=== PATIENT | male | born 1955 | race Caucasian/White ===

== ENCOUNTER 2017-09-11 11:15 | Emergency (ER) | payer OTHER ==
[~2017-09-11] VITALS: Ht 172.7 cm; Wt 73.9 kg
[~2017-09-11 11:15] MED LIST: ALBU90OI61 INH; Alph-E-Mixed400 UNIT; Aspirin EC81 MG; CALCIUM-MAGNES1 EAC1 PO; CARI350 PO; CHLO10 PO; CHLO25 PO; CYCL10 PO; Daily Multiple1 EACH PO; ESCI10 PO; FISH1000 PO; GLIP5; GLIP5 PO; HYDACE10B PO; HYDACE5325 PO; HYDHCL25 PO; INSULIN SC; LORA.5 PO; LORA2 PO; MEDICAL MARIJUANA; MELO7.5 PO; METF500 PO; Naprosyn500 MG PO; Norco 5-325 Ta1 EACH PO; Norco 7.5-3251 EACH PO; Roxicodone5 MG PO; Saw Palmetto160 MG; TRAZ50 PO; [UNRECOGNIZED DRUG - REMARK]
[2017-09-11 12:12] LABS: BASOPHILS ABSOLUTE AUTO 0.02 K/mm3 (0.00-0.23); BASOPHILS PERCENT AUTO 1 % (0-2); EOSINOPHILS ABSOLUTE AUTO 0.13 K/mm3 (0.00-0.68); EOSINOPHILS PERCENT AUTO 4 % (0-6); Hematocrit 39.5 % (37.0-53.0); Hemoglobin 13.5 g/dL (13.5-17.5); IMMATURE GRAN ABSOLUTE AUTO 0.02 K/mm3 (0.00-0.10); IMMATURE GRAN PERCENT AUTO 1 % (0-1); LYMPHOCYTES ABSOLUTE AUTO 1.58 K/mm3 (0.84-5.20); LYMPHOCYTES PERCENT AUTO 45 % (21-46); MONOCYTES ABSOLUTE AUTO 0.29 K/mm3 (0.16-1.47); MONOCYTES PERCENT AUTO 8 % (4-13); Mean Corpuscular HGB 29.6 pg (26.0-34.0); Mean Corpuscular HGB Conc 34.2 g/dL (31.5-36.5); Mean Corpuscular Volume 87 fL (80-100); Mean Platelet Volume 9.6 fL (9.1-12.4); NEUTROPHILS ABSOLUTE AUTO 1.44 K/mm3 (1.96-9.15); NEUTROPHILS PERCENT AUTO 41 % (41-73); Platelet Count 152 K/mm3 (150-400); RDW Coefficient Variation 12.3 % (11.7-14.2); RDW Standard Deviation 38.9 fL (35.1-46.3); Red Blood Cell Count 4.56 M/mm3 (4.30-5.90); White Blood Cell Count 3.48 K/mm3 (4.00-11.30)
[2017-09-11 12:25] LABS: Alanine Aminotransfer (ALT/SGP 153 U/L (12-78); Albumin, Blood 3.8 g/dL (3.4-5.0); Alk Phos 64 U/L (50-136); Anion Gap 10 mmol/L (6-16); Aspartate Aminotrans (AST/SGOT 89 U/L (12-37); Bilirubin, Total 0.5 mg/dL (0.1-1.0); Blood Urea Nitrogen 11 mg/dL (8-24); Bun/Creatinine Ratio 14.8 (12.0-20.0); CO2, Blood 24 mmol/L (21-32); Calcium, Blood 8.9 mg/dL (8.5-10.1); Chloride, Blood 105 mmol/L (98-108); Creatinine, Blood 0.74 mg/dL (0.60-1.20); Globulin, Blood 3.9 g/dL (2.2-4.0); Glomerular Filtration Rate >60 (60-); Glucose, Blood 184 mg/dL (70-99); Sodium, Blood 139 mmol/L (136-145); Total Protein, Blood 7.7 g/dL (6.4-8.2)
[2017-09-11] MEDS ORDERED: Norco 5-325 Ta1 EACH PO (12:32)
== END 2017-09-11 12:40 | disposition home or self-care (01) ==
LOC: ER 11:15
PROVIDERS: Psychiatry & Neurology Psychiatry
DX: M79.641 Pain in right hand (principal); M79.642 Pain in left hand; Z79.899 Other long term (current) drug therapy; Z79.84 Long term (current) use of oral hypoglycemic drugs; Z79.4 Long term (current) use of insulin; I48.91 Unspecified atrial fibrillation; E11.9 Type 2 diabetes mellitus without complications; I10 Essential (primary) hypertension; Z87.891 Personal history of nicotine dependence
CPT/HCPCS: 36415; 73130; 80053; 85025; 99283

== ENCOUNTER 2017-09-13 07:36 | Emergency (ER) | payer OTHER ==
[~2017-09-13] VITALS: Ht 172.7 cm; Wt 74.8 kg
[2017-09-13 08:34] LABS: BASOPHILS ABSOLUTE AUTO 0.02 K/mm3 (0.00-0.23); BASOPHILS PERCENT AUTO 0 % (0-2); EOSINOPHILS ABSOLUTE AUTO 0.15 K/mm3 (0.00-0.68); EOSINOPHILS PERCENT AUTO 3 % (0-6); Hematocrit 40.6 % (37.0-53.0); Hemoglobin 13.7 g/dL (13.5-17.5); IMMATURE GRAN ABSOLUTE AUTO 0.04 K/mm3 (0.00-0.10); IMMATURE GRAN PERCENT AUTO 1 % (0-1); LYMPHOCYTES ABSOLUTE AUTO 1.92 K/mm3 (0.84-5.20); LYMPHOCYTES PERCENT AUTO 38 % (21-46); MONOCYTES PERCENT AUTO 8 % (4-13); Mean Corpuscular HGB 29.6 pg (26.0-34.0); Mean Corpuscular HGB Conc 33.7 g/dL (31.5-36.5); Mean Corpuscular Volume 88 fL (80-100); NEUTROPHILS ABSOLUTE AUTO 2.53 K/mm3 (1.96-9.15); NEUTROPHILS PERCENT AUTO 50 % (41-73); RDW Coefficient Variation 12.3 % (11.7-14.2); RDW Standard Deviation 39.7 fL (35.1-46.3); Red Blood Cell Count 4.63 M/mm3 (4.30-5.90); White Blood Cell Count 5.06 K/mm3 (4.00-11.30)
[2017-09-13 08:39] LABS: Mean Platelet Volume 9.7 fL (9.1-12.4); Platelet Count 150 K/mm3 (150-400)
[2017-09-13 08:44] LABS: Anion Gap 8 mmol/L (6-16); Blood Urea Nitrogen 15 mg/dL (8-24); CO2, Blood 25 mmol/L (21-32); Calcium, Blood 8.7 mg/dL (8.5-10.1); Chloride, Blood 105 mmol/L (98-108); Creatinine, Blood 0.63 mg/dL (0.60-1.20); Glomerular Filtration Rate >60 (60-); Glucose, Blood 199 mg/dL (70-99); Potassium, Blood 4.1 mmol/L (3.5-5.5); Sodium, Blood 138 mmol/L (136-145)
== END 2017-09-13 09:20 | disposition home or self-care (01) ==
LOC: ER 07:36
PROVIDERS: Emergency Medicine
DX: G89.18 Other acute postprocedural pain (principal); M79.641 Pain in right hand; M79.89 Other specified soft tissue disorders; Z79.899 Other long term (current) drug therapy; Z79.84 Long term (current) use of oral hypoglycemic drugs; Z79.4 Long term (current) use of insulin; I48.91 Unspecified atrial fibrillation; E11.9 Type 2 diabetes mellitus without complications; I10 Essential (primary) hypertension; Z87.891 Personal history of nicotine dependence; F10.20 Alcohol dependence, uncomplicated
CPT/HCPCS: 36415; 73120; 80048; 85025; 96374; 96375; 99283; J0690; J1170; J1885; J2405; J7030

== ENCOUNTER 2017-09-13 15:23 | Emergency (ER) | payer OTHER ==
[~2017-09-13] VITALS: Ht 172.7 cm; Wt 74.8 kg
[2017-09-13 17:34] LABS: BASOPHILS ABSOLUTE AUTO 0.01 K/mm3 (0.00-0.23); BASOPHILS PERCENT AUTO 0 % (0-2); EOSINOPHILS ABSOLUTE AUTO 0.13 K/mm3 (0.00-0.68); EOSINOPHILS PERCENT AUTO 2 % (0-6); Hematocrit 36.1 % (37.0-53.0); Hemoglobin 12.2 g/dL (13.5-17.5); IMMATURE GRAN ABSOLUTE AUTO 0.02 K/mm3 (0.00-0.10); IMMATURE GRAN PERCENT AUTO 0 % (0-1); LYMPHOCYTES ABSOLUTE AUTO 1.23 K/mm3 (0.84-5.20); LYMPHOCYTES PERCENT AUTO 20 % (21-46); MONOCYTES ABSOLUTE AUTO 0.55 K/mm3 (0.16-1.47); MONOCYTES PERCENT AUTO 9 % (4-13); Mean Corpuscular HGB 30.3 pg (26.0-34.0); Mean Corpuscular HGB Conc 33.8 g/dL (31.5-36.5); Mean Corpuscular Volume 90 fL (80-100); Mean Platelet Volume 9.5 fL (9.1-12.4); NEUTROPHILS ABSOLUTE AUTO 4.19 K/mm3 (1.96-9.15); NEUTROPHILS PERCENT AUTO 68 % (41-73); Platelet Count 128 K/mm3 (150-400); RDW Coefficient Variation 12.2 % (11.7-14.2); RDW Standard Deviation 39.8 fL (35.1-46.3); Red Blood Cell Count 4.03 M/mm3 (4.30-5.90); White Blood Cell Count 6.13 K/mm3 (4.00-11.30)
[2017-09-13 18:00] LABS: Alanine Aminotransfer (ALT/SGP 115 U/L (12-78); Albumin, Blood 3.4 g/dL (3.4-5.0); Albumin/Globulin Ratio 0.9 (0.8-1.8); Alk Phos 55 U/L (50-136); Anion Gap 8 mmol/L (6-16); Aspartate Aminotrans (AST/SGOT 62 U/L (12-37); Bilirubin, Total 0.5 mg/dL (0.1-1.0); Blood Urea Nitrogen 11 mg/dL (8-24); Bun/Creatinine Ratio 17.2 (12.0-20.0); CO2, Blood 24 mmol/L (21-32); Calcium, Blood 8.3 mg/dL (8.5-10.1); Chloride, Blood 102 mmol/L (98-108); Creatinine, Blood 0.64 mg/dL (0.60-1.20); Globulin, Blood 3.6 g/dL (2.2-4.0); Glomerular Filtration Rate >60 (60-); Glucose, Blood 104 mg/dL (70-99); Potassium, Blood 4.2 mmol/L (3.5-5.5); Sodium, Blood 134 mmol/L (136-145)
== END 2017-09-13 18:48 | disposition short-term general hospital (02) ==
LOC: ER 15:23
PROVIDERS: Emergency Medicine
DX: T84.59XA Infection and inflammatory reaction due to other internal joint prosthesis, initial encounter (principal); I89.1 Lymphangitis; E11.9 Type 2 diabetes mellitus without complications; I48.91 Unspecified atrial fibrillation; I10 Essential (primary) hypertension; Z79.84 Long term (current) use of oral hypoglycemic drugs; Z87.891 Personal history of nicotine dependence; Z96.691 Finger-joint replacement of right hand
CPT/HCPCS: 36415; 73120; 80048; 80053; 83605; 85025; 87040; 96365; 96374; 96375; 99283; 99285; J0690; J1170; J1885; J2405; J3370; J7030; J7050

== ENCOUNTER 2017-09-22 00:35 | Day surgery (SDC) | payer OTHER ==
[2017-09-22 11:00] LABS: BASOPHILS ABSOLUTE AUTO 0.03 K/mm3 (0.00-0.23); BASOPHILS PERCENT AUTO 1 % (0-2); EOSINOPHILS ABSOLUTE AUTO 0.26 K/mm3 (0.00-0.68); EOSINOPHILS PERCENT AUTO 5 % (0-6); Hematocrit 40.1 % (37.0-53.0); Hemoglobin 13.7 g/dL (13.5-17.5); IMMATURE GRAN PERCENT AUTO 2 % (0-1); LYMPHOCYTES ABSOLUTE AUTO 2.56 K/mm3 (0.84-5.20); LYMPHOCYTES PERCENT AUTO 48 % (21-46); MONOCYTES ABSOLUTE AUTO 0.48 K/mm3 (0.16-1.47); MONOCYTES PERCENT AUTO 9 % (4-13); Mean Corpuscular HGB 29.3 pg (26.0-34.0); Mean Corpuscular HGB Conc 34.2 g/dL (31.5-36.5); Mean Platelet Volume 9.4 fL (9.1-12.4); NEUTROPHILS ABSOLUTE AUTO 1.96 K/mm3 (1.96-9.15); NEUTROPHILS PERCENT AUTO 36 % (41-73); Platelet Count 251 K/mm3 (150-400); RDW Coefficient Variation 11.9 % (11.7-14.2); RDW Standard Deviation 37.3 fL (35.1-46.3); Red Blood Cell Count 4.67 M/mm3 (4.30-5.90); White Blood Cell Count 5.39 K/mm3 (4.00-11.30)
[2017-09-22 11:01] LABS: Mean Corpuscular Volume 86 fL (80-100)
[2017-09-22 11:22] LABS: C-REACTIVE PROTEIN, EXT RANGE 0.354 mg/dL (0.000-0.300)
[2017-09-22 11:46] LABS: Alanine Aminotransfer (ALT/SGP 79 U/L (12-78); Albumin, Blood 3.5 g/dL (3.4-5.0); Albumin/Globulin Ratio 0.7 (0.8-1.8); Alk Phos 76 U/L (50-136); Aspartate Aminotrans (AST/SGOT 52 U/L (12-37); Bilirubin, Total 0.5 mg/dL (0.1-1.0); Blood Urea Nitrogen 16 mg/dL (8-24); Bun/Creatinine Ratio 22.9 (12.0-20.0); CO2, Blood 26 mmol/L (21-32); Globulin, Blood 4.8 g/dL (2.2-4.0); Glomerular Filtration Rate >60 (60-); Glucose, Blood 212 mg/dL (70-99); Total Protein, Blood 8.3 g/dL (6.4-8.2)
[2017-09-22 12:04] LABS: Anion Gap 10 mmol/L (6-16); Chloride, Blood 103 mmol/L (98-108); Sodium, Blood 139 mmol/L (136-145)
== END 2017-09-22 10:40 | disposition home or self-care (01) ==
LOC: ATC 00:35
PROVIDERS: Internal Medicine Infectious Disease
DX: T84.59XA Infection and inflammatory reaction due to other internal joint prosthesis, initial encounter (principal); E11.9 Type 2 diabetes mellitus without complications
CPT/HCPCS: 36592; 80053; 85025; 85651; 86140

== ENCOUNTER 2017-10-06 13:43 | Day surgery (SDC) | payer OTHER | END 2017-10-06 14:32 | disposition home or self-care (01) | LOC: ATC 13:43 | DX: Z45.2 Encounter for adjustment and management of vascular access device (principal); T81.4XXA Infection following a procedure, initial encounter; L08.9 Local infection of the skin and subcutaneous tissue, unspecified; E11.9 Type 2 diabetes mellitus without complications; Z86.19 Personal history of other infectious and parasitic diseases | CPT/HCPCS: 99211 ==

== ENCOUNTER 2017-10-14 10:53 | Day surgery (SDC) | payer OTHER ==
[2017-10-14 11:43] LABS: BASOPHILS ABSOLUTE AUTO 0.02 K/mm3 (0.00-0.23); BASOPHILS PERCENT AUTO 1 % (0-2); EOSINOPHILS ABSOLUTE AUTO 0.43 K/mm3 (0.00-0.68); EOSINOPHILS PERCENT AUTO 12 % (0-6); Hematocrit 39.4 % (37.0-53.0); Hemoglobin 13.5 g/dL (13.5-17.5); IMMATURE GRAN ABSOLUTE AUTO 0.01 K/mm3 (0.00-0.10); IMMATURE GRAN PERCENT AUTO 0 % (0-1); LYMPHOCYTES ABSOLUTE AUTO 1.64 K/mm3 (0.84-5.20); LYMPHOCYTES PERCENT AUTO 46 % (21-46); MONOCYTES ABSOLUTE AUTO 0.37 K/mm3 (0.16-1.47); MONOCYTES PERCENT AUTO 10 % (4-13); Mean Corpuscular HGB 30.5 pg (26.0-34.0); Mean Corpuscular HGB Conc 34.3 g/dL (31.5-36.5); Mean Corpuscular Volume 89 fL (80-100); Mean Platelet Volume 10.1 fL (9.1-12.4); NEUTROPHILS ABSOLUTE AUTO 1.09 K/mm3 (1.96-9.15); NEUTROPHILS PERCENT AUTO 31 % (41-73); Platelet Count 123 K/mm3 (150-400); RDW Coefficient Variation 11.8 % (11.7-14.2); RDW Standard Deviation 38.3 fL (35.1-46.3); Red Blood Cell Count 4.42 M/mm3 (4.30-5.90); White Blood Cell Count 3.56 K/mm3 (4.00-11.30)
[2017-10-14 12:09] LABS: Alanine Aminotransfer (ALT/SGP 98 U/L (12-78); Albumin, Blood 3.5 g/dL (3.4-5.0); Albumin/Globulin Ratio 0.8 (0.8-1.8); Alk Phos 69 U/L (50-136); Anion Gap 7 mmol/L (6-16); Aspartate Aminotrans (AST/SGOT 50 U/L (12-37); Bilirubin, Total 0.5 mg/dL (0.1-1.0); Blood Urea Nitrogen 23 mg/dL (8-24); Bun/Creatinine Ratio 27.1 (12.0-20.0); C-REACTIVE PROTEIN, EXT RANGE 0.371 mg/dL (0.000-0.300); CO2, Blood 28 mmol/L (21-32); Calcium, Blood 8.8 mg/dL (8.5-10.1); Chloride, Blood 101 mmol/L (98-108); Creatinine, Blood 0.85 mg/dL (0.60-1.20); Globulin, Blood 4.4 g/dL (2.2-4.0); Glomerular Filtration Rate >60 (60-); Glucose, Blood 285 mg/dL (70-99); Potassium, Blood 4.5 mmol/L (3.5-5.5); Sodium, Blood 136 mmol/L (136-145); Total Protein, Blood 7.9 g/dL (6.4-8.2)
== END 2017-10-14 11:30 | disposition home or self-care (01) ==
LOC: ATC 10:53
PROVIDERS: Internal Medicine Infectious Disease
DX: T84.59XA Infection and inflammatory reaction due to other internal joint prosthesis, initial encounter (principal); E11.9 Type 2 diabetes mellitus without complications
CPT/HCPCS: 36592; 80053; 85025; 85651; 86140

== ENCOUNTER 2017-10-18 15:00 | Day surgery (SDC) | payer OTHER ==
[2017-10-18] MEDS ORDERED: VANCO 1 GR1 GM/250 M IV (15:46)
== END 2017-10-18 15:21 | disposition home or self-care (01) ==
LOC: ATC 15:00
DX: T84.59XA Infection and inflammatory reaction due to other internal joint prosthesis, initial encounter (principal); E11.9 Type 2 diabetes mellitus without complications; Z79.84 Long term (current) use of oral hypoglycemic drugs
CPT/HCPCS: 99211

== ENCOUNTER 2017-10-21 07:42 | Day surgery (SDC) | payer OTHER ==
[~2017-10-21 07:42] MED LIST changes: +VANCO 1 GR1 GM/250 M IV
== END 2017-10-21 22:45 | disposition home or self-care (01) ==
LOC: ATC 07:42
DX: T84.59XA Infection and inflammatory reaction due to other internal joint prosthesis, initial encounter (principal); B18.2 Chronic viral hepatitis C; E11.9 Type 2 diabetes mellitus without complications

== ENCOUNTER 2017-10-27 14:34 | Observation (INO) | payer OTHER ==
[~2017-10-27] VITALS: Ht 172.7 cm; Wt 73.5 kg
[2017-10-27 15:12] LABS: BASOPHILS ABSOLUTE AUTO 0.01 K/mm3 (0.00-0.23); BASOPHILS PERCENT AUTO 0 % (0-2); EOSINOPHILS ABSOLUTE AUTO 0.17 K/mm3 (0.00-0.68); EOSINOPHILS PERCENT AUTO 4 % (0-6); Hematocrit 45.1 % (37.0-53.0); Hemoglobin 15.7 g/dL (13.5-17.5); IMMATURE GRAN ABSOLUTE AUTO 0.02 K/mm3 (0.00-0.10); IMMATURE GRAN PERCENT AUTO 1 % (0-1); LYMPHOCYTES ABSOLUTE AUTO 2.12 K/mm3 (0.84-5.20); LYMPHOCYTES PERCENT AUTO 48 % (21-46); MONOCYTES ABSOLUTE AUTO 0.32 K/mm3 (0.16-1.47); MONOCYTES PERCENT AUTO 7 % (4-13); Mean Corpuscular HGB 29.6 pg (26.0-34.0); Mean Corpuscular HGB Conc 34.8 g/dL (31.5-36.5); Mean Platelet Volume 9.4 fL (9.1-12.4); NEUTROPHILS PERCENT AUTO 41 % (41-73); Platelet Count 189 K/mm3 (150-400); RDW Coefficient Variation 11.6 % (11.7-14.2); RDW Standard Deviation 36.1 fL (35.1-46.3); Red Blood Cell Count 5.31 M/mm3 (4.30-5.90); White Blood Cell Count 4.44 K/mm3 (4.00-11.30)
[2017-10-27 15:18] LABS: Mean Corpuscular Volume 85 fL (80-100)
[2017-10-27 15:28] LABS: International Normalized Ratio 1.09; Prothrombin Time Results 11.4 Sec (9.7-11.5)
[2017-10-27 15:38] LABS: Ethanol (Alcohol), Blood, Med 262 mg/dL
[2017-10-27 15:43] LABS: U Amphetamine Screen Not Detected; U Barbituate Screen Not Detected; U Benzodiazapine Screen DETECTED; U Buprenorphine Screen Not Detected; U Cannabinoids Screen Not Detected; U Cocaine Screen Not Detected; U Methadone Screen Not Detected; U Methamphetamine Screen Not Detected; U Opiates Screen DETECTED; U Phencyclidine Screen Not Detected
[2017-10-27 15:44] LABS: U Oxycodone Screen Not Detected; U Propoxyphene Screen Not Detected
[2017-10-27 16:22] LABS: Alanine Aminotransfer (ALT/SGP 92 U/L (12-78); Albumin, Blood 3.8 g/dL (3.4-5.0); Albumin/Globulin Ratio 0.9 (0.8-1.8); Alk Phos 74 U/L (50-136); Anion Gap 16 mmol/L (6-16); Aspartate Aminotrans (AST/SGOT 56 U/L (12-37); Bilirubin, Total 0.4 mg/dL (0.1-1.0); Blood Urea Nitrogen 15 mg/dL (8-24); Bun/Creatinine Ratio 20.3 (12.0-20.0); CO2, Blood 21 mmol/L (21-32); Calcium, Blood 9.2 mg/dL (8.5-10.1); Chloride, Blood 100 mmol/L (98-108); Creatinine, Blood 0.74 mg/dL (0.60-1.20); Globulin, Blood 4.4 g/dL (2.2-4.0); Glomerular Filtration Rate >60 (60-); Glucose, Blood 414 mg/dL (70-99); Potassium, Blood 3.8 mmol/L (3.5-5.5); Sodium, Blood 137 mmol/L (136-145); Total Protein, Blood 8.2 g/dL (6.4-8.2)
[2017-10-27 18:36] LABS: Source, Urine Clean Catch
[2017-10-27 18:54] LABS: Appearance, Urine Clear (Clear); Bilirubin, Urine Neg (Neg); Blood, Urine Neg (Neg); Color, Urine Yellow (P-Yellow); Glucose Qualitative, Urine 4+ (Neg); Ketones, Urine Neg (Neg); Leukocyte Esterase, Urine Neg (Neg); Nitrite, Urine Neg (Neg); Protein, Urine 1+ (Neg); Urobilinogen, Urine NORM (Normal)
== END 2017-10-27 21:16 | disposition home or self-care (01) ==
LOC: ER 14:34 → EOR 14:35
PROVIDERS: Emergency Medicine
DX: F10.129 Alcohol abuse with intoxication, unspecified (principal); E11.9 Type 2 diabetes mellitus without complications; I10 Essential (primary) hypertension; Z79.4 Long term (current) use of insulin; Z87.891 Personal history of nicotine dependence; Y90.8 Blood alcohol level of 240 mg/100 ml or more
CPT/HCPCS: 36415; 70450; 80053; 82947; 85025; 85610; 85730; 93005; 93010; 96360; 99285; G0378; G0480; J1815; J7030

== ENCOUNTER 2018-11-17 20:59 | Emergency (ER) | payer OTHER ==
[~2018-11-17] VITALS: Ht 172.7 cm; Wt 68.0 kg
[2018-11-17] MEDS ORDERED: CHLO25 PO (21:51)
== END 2018-11-17 23:06 | disposition home or self-care (01) ==
LOC: ER 20:59
DX: F10.129 Alcohol abuse with intoxication, unspecified (principal); I48.91 Unspecified atrial fibrillation; E11.9 Type 2 diabetes mellitus without complications; I10 Essential (primary) hypertension; Z87.891 Personal history of nicotine dependence
CPT/HCPCS: 96360; 96361; 99284-25; J7030

== ENCOUNTER 2021-01-28 11:21 | Day surgery (SDC) | payer MEDICARE ==
[~2021-01-28] VITALS: Ht 172.7 cm; Wt 73.1 kg
[~2021-01-28 11:21] MED LIST changes: +ALKA-SELTZER PO; +AMLO5 PO; +BASAGLAR K100 UNIT/1 SC; +GLIP10 PO; +GLUCOPHAGE1000 M1 PO; +Lisinopril2.5 MG PO
== END 2021-01-28 13:35 | disposition home or self-care (01) ==
LOC: ORSCSDS 11:21
PROVIDERS: Internal Medicine Gastroenterology
PROC: 0D758ZZ Dilation of Esophagus, Via Natural or Artificial Opening Endoscopic (ICD-10-PCS; principal; 2021-01-28 12:30)
PROC: 0DB78ZX Excision of Stomach, Pylorus, Via Natural or Artificial Opening Endoscopic, Diagnostic (ICD-10-PCS; principal; 2021-01-28 12:30)
PROC: 0DBH8ZX Excision of Cecum, Via Natural or Artificial Opening Endoscopic, Diagnostic (ICD-10-PCS; principal; 2021-01-28 12:30)
DX: Z12.11 Encounter for screening for malignant neoplasm of colon (principal); D12.0 Benign neoplasm of cecum; R13.10 Dysphagia, unspecified; K74.69 Other cirrhosis of liver; K20.90 Esophagitis, unspecified without bleeding; K22.2 Esophageal obstruction; K44.9 Diaphragmatic hernia without obstruction or gangrene; Q27.33 Arteriovenous malformation of digestive system vessel; K57.30 Diverticulosis of large intestine without perforation or abscess without bleeding; K64.1 Second degree hemorrhoids; E11.9 Type 2 diabetes mellitus without complications; I10 Essential (primary) hypertension; Z79.84 Long term (current) use of oral hypoglycemic drugs; Z79.899 Other long term (current) drug therapy; Z79.82 Long term (current) use of aspirin
CPT/HCPCS: 82947; 88305; 88342; J2704; J7120

== ENCOUNTER → 2021-10-08 | Outpatient (CLI) | payer MEDICARE ==
[~2021-10-08] MED LIST changes: +Acetaminophen650 M1 PO; +BENADRYL25 MG PO; +BUME2 PO; +BUSP5 PO; +DIGOX125 MC1 PO; +DIGOX250 MCG PO; +DIGOXIN PO; +ELIQUIS5 M2 PO; +FURO20 PO; +METO50 PO; +METPRE4DP PO; +OXYC5 PO; +PRED20 PO; +TEMA15 PO
[2021-10-08 17:17] LABS: Anion Gap 2 mmol/L (6-16); Blood Urea Nitrogen 23 mg/dL (8-24); Bun/Creatinine Ratio 20.2 (12.0-20.0); CO2, Blood 26 mmol/L (21-32); Calcium, Blood 8.9 mg/dL (8.5-10.1); Chloride, Blood 110 mmol/L (98-108); Creatinine, Blood 1.14 mg/dL (0.60-1.20); Glomerular Filtration Rate >60 (60-); Glucose, Blood 131 mg/dL (70-99); Potassium, Blood 4.4 mmol/L (3.5-5.5); Sodium, Blood 138 mmol/L (136-145)
== END | disposition home or self-care (01) ==
LOC: LAB 15:26
PROVIDERS: Physician Assistant
DX: E11.9 Type 2 diabetes mellitus without complications (principal); I10 Essential (primary) hypertension
CPT/HCPCS: 80048

== ENCOUNTER 2022-01-29 07:49 | Inpatient (IN) | payer MEDICARE ==
[~2022-01-29] VITALS: Ht 172.7 cm; Wt 69.8 kg
[~2022-01-29 07:49] MED LIST changes: -Acetaminophen650 M1 PO; -BENADRYL25 MG PO; -BUME2 PO; -BUSP5 PO; -DIGOX125 MC1 PO; -DIGOX250 MCG PO; -DIGOXIN PO; -ELIQUIS5 M2 PO; -FURO20 PO; -METO50 PO; -METPRE4DP PO; -OXYC5 PO; -PRED20 PO; -TEMA15 PO
[2022-01-29 08:23] LABS: BASOPHILS ABSOLUTE AUTO 0.03 K/mm3 (0.00-0.23); BASOPHILS PERCENT AUTO 0 % (0-2); EOSINOPHILS ABSOLUTE AUTO 0.23 K/mm3 (0.00-0.68); EOSINOPHILS PERCENT AUTO 3 % (0-6); Hematocrit 39.8 % (37.0-53.0); IMMATURE GRAN ABSOLUTE AUTO 0.03 K/mm3 (0.00-0.10); IMMATURE GRAN PERCENT AUTO 0 % (0-1); LYMPHOCYTES ABSOLUTE AUTO 2.17 K/mm3 (0.84-5.20); LYMPHOCYTES PERCENT AUTO 29 % (21-46); MONOCYTES ABSOLUTE AUTO 0.47 K/mm3 (0.16-1.47); MONOCYTES PERCENT AUTO 6 % (4-13); Mean Corpuscular HGB 28.7 pg (26.0-34.0); Mean Corpuscular HGB Conc 32.7 g/dL (31.5-36.5); Mean Corpuscular Volume 88 fL (80-100); Mean Platelet Volume 10.1 fL (9.1-12.4); NEUTROPHILS ABSOLUTE AUTO 4.49 K/mm3 (1.96-9.15); NEUTROPHILS PERCENT AUTO 61 % (41-73); Platelet Count 224 K/mm3 (150-400); RDW Coefficient Variation 12.1 % (11.7-14.2); RDW Standard Deviation 39.1 fL (35.1-46.3); Red Blood Cell Count 4.53 M/mm3 (4.30-5.90); White Blood Cell Count 7.42 K/mm3 (4.00-11.30)
[2022-01-29 08:31] LABS: Albumin, Blood 3.7 g/dL (3.4-5.0); Bilirubin, Total 0.4 mg/dL (0.1-1.0); Bun/Creatinine Ratio 15.6 (12.0-20.0); Calcium, Blood 8.8 mg/dL (8.5-10.1); Creatinine, Blood 0.96 mg/dL (0.60-1.20); Globulin, Blood 3.8 g/dL (2.2-4.0); Potassium, Blood 3.9 mmol/L (3.5-5.5); Total Protein, Blood 7.5 g/dL (6.4-8.2)
[2022-01-29 09:05] LABS: Influenza A, PCR NEGATIVE (NEGATIVE); Influenza B, PCR NEGATIVE (NEGATIVE); Resp Syncytial Virus, PCR NEGATIVE (NEGATIVE); SARS-Cov-2 (COVID-19) PCR, MMC NEGATIVE (NEGATIVE)
[2022-01-29 12:57] LABS: PCO2 Arterial 37.8 mmHg (35-45); PO2 Arterial 75.1 mmHg (80-100); pH Blood Arterial 7.42 (7.35-7.45)
--- NOTE | 2022-01-29 16:39 | NUR ---
CARDIZEM DRIP STOPPED AT THIS TIME. HR 70, BP 98/77, RR 20.
--- NOTE | 2022-01-29 17:20 | NUR ---
CALL PLACED TO DR ROSENBERG PT WITH DROP IN PRESSURE AND HR DESPITE CARDIZEM BEING OFF FOR SOME TIME. NEW ORDERS FOR 500ML NS BOLUS OBTAINED AND INFUSING AT THIS TIME, BP NOW 108/66 HR 59. BIPAP REPLACED PT REPORTS SOB HAS RETURNED. LS DIMENISHED TO CLEAR T/O PRIOR TO BOLUS. RT AT BEDSIDE, COUPON CLERK TO ROOM. PT REPORTS IMPROVEMENT IN SOB WITH BIPAP MASK.
--- NOTE | 2022-01-29 18:35 | NUR ---
PT TRANSFERED TO ICU 5 REPORT TO JARED NIXON IN ICU. NS CONTINUES INFUSING AT 125ML/HR PER ORDER. DR LEWIS IS CONSULTED PRIOR TO PT LEAVING PCU, COVID SWAB WAS COLLECTED. PT LEFT UNIT ON GURNEY, ON 2L OXYGEN WITH SPO2 >94%. BLOOD PRESSURES REMAIN SOFT, WITH MAP >65. PT ALERT, TALKING, APPEARS TIRED. REPORTS PAIN INCREASING TO RUQ.
--- NOTE | 2022-01-29 18:58 | NUR ---
PT TO ICU ROOM 5 FROM PCU 6. PT ARRIVES TACHYPNEIC ON 2LNC, SATS 98-100%. PT SLIDE TO ICU BED WITH MINIMAL ASSISTANCE IMMEDIATELY BEGINS TRIPODING AND REPORTING SHORTNESS OF BREATH. UPON ASSESSMENT PT'S ABDOMEN FOUND TO BE RIGID, PAIN WITH PALPATION SPECIFIC TO RUQ. PT REPORTS THAT ABDOMEN HAS BEEN "SWOLLEN AND TENDER X2DAYS". PT STATES THAT HE IS UNABLE TO "TAKE A DEEP BREATH BECAUSE STOMACH IS PUSHING ON LUNGS". DR. LEWIS AT BEDSIDE ASSESSING PT, ORDER FOR FLUID BOLUS, PAIN MEDICATION AND STAT ABDOMINAL/PELVIC ULTRASOUND. CURRENTLY IN AFIB WITH HR 49-60, MAP>65. PT AND PT'S SIGNIFICANT OTHER UPDATED WITH PLAN OF CARE. WILL REPORT TO ONCOMING NURSE.
--- NOTE | 2022-01-29 19:00 | NUR ---
ASSUMED CARE ASSUMED CARE OF PATIENT. AWAKE AND ALERT. ORIENTED AND COOPERATIVE. S.O. AT BEDSIDE. CONTINUES WITH C/O RUQ PAIN, BUT STATES PAIN IS BETTER AFTER RECENT IV MORPHINE. CONTINUES TO C/O DYSPNEA/SOB. RESPIRATIONS ARE SHALLOW. ENCOURAGED TO DEEP BREATHE FREQUENTLY. OCCASIONAL NPC COUGH. O2 2L NC- SATS STABLE. MONITOR SHOWS AFIB, RATE 50s-60s. BP STABLE AT THIS TIME. NO URINE VOID SINCE ARRIVAL TO UNIT- PT STATES HE VOIDED IN THE ER PRIOR TO COMING TO UNIT. NS INFUSING AT 100CC/HR PER ORDER. SEE SHIFT ASSESSMENT FOR FULL ASSESSMENT.
[2022-01-30 03:46] LABS: BASOPHILS ABSOLUTE AUTO 0.02 K/mm3 (0.00-0.23); BASOPHILS PERCENT AUTO 0 % (0-2); EOSINOPHILS ABSOLUTE AUTO 0.11 K/mm3 (0.00-0.68); EOSINOPHILS PERCENT AUTO 2 % (0-6); Hematocrit 37.5 % (37.0-53.0); Hemoglobin 12.2 g/dL (13.5-17.5); IMMATURE GRAN ABSOLUTE AUTO 0.02 K/mm3 (0.00-0.10); IMMATURE GRAN PERCENT AUTO 0 % (0-1); LYMPHOCYTES ABSOLUTE AUTO 2.43 K/mm3 (0.84-5.20); LYMPHOCYTES PERCENT AUTO 36 % (21-46); MONOCYTES ABSOLUTE AUTO 0.69 K/mm3 (0.16-1.47); MONOCYTES PERCENT AUTO 10 % (4-13); Mean Corpuscular HGB 28.5 pg (26.0-34.0); Mean Corpuscular HGB Conc 32.5 g/dL (31.5-36.5); Mean Corpuscular Volume 88 fL (80-100); NEUTROPHILS ABSOLUTE AUTO 3.48 K/mm3 (1.96-9.15); NEUTROPHILS PERCENT AUTO 52 % (41-73); Platelet Count 198 K/mm3 (150-400); RDW Coefficient Variation 12.2 % (11.7-14.2); Red Blood Cell Count 4.28 M/mm3 (4.30-5.90); White Blood Cell Count 6.75 K/mm3 (4.00-11.30)
[2022-01-30 04:03] LABS: Albumin, Blood 3.5 g/dL (3.4-5.0); Albumin/Globulin Ratio 1.1 (0.8-1.8); Bilirubin, Total 0.9 mg/dL (0.1-1.0); Bun/Creatinine Ratio 16.2 (12.0-20.0); Calcium, Blood 8.3 mg/dL (8.5-10.1); Creatinine, Blood 1.05 mg/dL (0.60-1.20); Globulin, Blood 3.2 g/dL (2.2-4.0); Phosphorus, Blood 4.7 mg/dL (2.5-4.9); Total Protein, Blood 6.7 g/dL (6.4-8.2)
--- NOTE | 2022-01-30 05:35 | NUR ---
HYPOGLYCEMIA GLUCOSE ON AM LAB WAS 69 AT 0316. RECHECKED AT 0530- CBG 54. PT IS AWAKE AND ALERT, BUT UNABLE TO TAKE PO AT THIS TIME D/T POSSIBLE SURGERY TODAY. DR. MANTILLA NOTIFIED- NEW ORDER RECEIVED FOR 1L OF D51/2NS AT 75CC/HR. WILL MONITOR.
--- NOTE | 2022-01-30 06:12 | NUR ---
SHIFT SUMMARY NO ACUTE CHANGES DURING NOC. SLEPT WHEN UNDISTURBED. ROUSES EASILY. NS INFUSED AT 100CC/HR, BUT CHANGED THIS AM TO D51/2NS AT 75CC/HR D/T PT'S NPO STATUS AND HYPOGLYCEMIA. REMAINS IN AFIB, RATE NOW 90s-110s. BP STABLE. O2 2L NC TO MAINTAIN SATS >92%. PT STATES THAT HE IS "BREATHING BETTER." MEDICATED WITH MS 2MG IV X 3 DOSES DURING SHIFT FOR RUQ PAIN 6-01/24. GOOD RELIEF WITH MS PER PATIENT. DENIES NAUSEA. STILL NPO. ABD US SCHEDULED FOR THIS AM. VOIDING WITHOUT DIFFICULTY. WILL REPORT TO ONCOMING RN WHEN AVAILABLE.
--- NOTE | 2022-01-30 12:15 | NUR ---
REASSESSMENT PT HAS BEEN RESTING IN BED THROUGHOUT THE MORNING. MEDICATED ONCE FOR PAIN. POWERGLIDE PLACED BY HUSSAIN BRYANT PT'S IVS ARE IN THE AC AND HE WASN'T ABLE TO MOVE HIS ARM WITHOUT THE IV PUMP RINGING DISTAL OCCLUSION. PT STATES HE FEEL LUPE EXCEPT FOR WHEN HE STARTS TO MOVE AND THEN HE FEELS SHORT OF BREATH. HR HAS BEEN 110-130S. DILTIAZEM GTT RESTARTED AFTER TALKING WITH DR. ROSENBERG ABOUT POSSIBILITY OF PO RATE CONTROL. DR. LEWIS CAME BY AND CONSULTED SURGERY FOR PT'S ABD PAIN AND DR. ANGULO SAW PT. PLAN IS FOR HIDA SCAN, BUT [facility] CALLED AND SAID IT WON'T BE DONE UNTIL 8 OR 9AM TOMORROW. TC OUT TO DR. LEWIS TO SEE ABOUT ALLOWING PT TO EAT. HEPARING GTT STARTED PER DR. LEWIS'S ORDERS FOR PT'S AFIB. SPOKE WITH PT'S SO DARIANA AND PROVIDED UPDATE. CONTINUING TO MONITOR.
--- NOTE | 2022-01-30 16:45 | NUR ---
SHIFT SUMMARY PT REMAINS ALERT AND ORIENTED. DILTIAZEM GTT STARTED THIS MORNING, THEN WAS TITRATED OFF AFTER PO METOPROLOL GIVEN. HR CURRENTLY AFIB WITH RATE IN THE 60 AND 70S. BP STABLE. PT STILL HAVING RUQ PAIN, CONTROLLED WITH MORPHINE. NO SIGNIFICANT INCREASE IN PAIN WITH EATING. VOIDING WITHOUT DIFFICULTY. PT'S SO CAME IN THIS AFTERNOON AND WAS UPDATED. EDUCATION PROVIDED TO PT AND HIS SO ABOUT AFIB AND ALL QUESTIONS ANSWERED.
--- NOTE | 2022-01-30 17:38 | NUR ---
TRANSFER UPDATE REPORT RECIEVED FROM DIRECTOR INDUSTRIAL RELATIONS AT [id number].
--- NOTE | 2022-01-30 17:57 | NUR ---
TRANSFER PT TRANSFERRED TO U 14. REPORT GIVEN TO HUSSAIN MENDOZA. PT TRANSPORTED WITH AIDE AND ALL BELONGINGS TRANSFERRED WITH PT. PT'S SO AT [facility] [place] WITH PT AT TIME OF TRANSFER.
[2022-01-31 03:23] LABS: BASOPHILS ABSOLUTE AUTO 0.03 K/mm3 (0.00-0.23); BASOPHILS PERCENT AUTO 0 % (0-2); EOSINOPHILS ABSOLUTE AUTO 0.21 K/mm3 (0.00-0.68); EOSINOPHILS PERCENT AUTO 3 % (0-6); Hematocrit 36.8 % (37.0-53.0); IMMATURE GRAN ABSOLUTE AUTO 0.01 K/mm3 (0.00-0.10); IMMATURE GRAN PERCENT AUTO 0 % (0-1); LYMPHOCYTES ABSOLUTE AUTO 1.89 K/mm3 (0.84-5.20); LYMPHOCYTES PERCENT AUTO 25 % (21-46); MONOCYTES ABSOLUTE AUTO 0.57 K/mm3 (0.16-1.47); MONOCYTES PERCENT AUTO 8 % (4-13); Mean Corpuscular HGB 28.7 pg (26.0-34.0); Mean Corpuscular HGB Conc 32.6 g/dL (31.5-36.5); Mean Corpuscular Volume 88 fL (80-100); Mean Platelet Volume 10.1 fL (9.1-12.4); NEUTROPHILS ABSOLUTE AUTO 4.91 K/mm3 (1.96-9.15); NEUTROPHILS PERCENT AUTO 64 % (41-73); Platelet Count 199 K/mm3 (150-400); RDW Coefficient Variation 11.9 % (11.7-14.2); RDW Standard Deviation 38.6 fL (35.1-46.3); Red Blood Cell Count 4.18 M/mm3 (4.30-5.90); White Blood Cell Count 7.62 K/mm3 (4.00-11.30)
[2022-01-31 03:41] LABS: Albumin, Blood 3.5 g/dL (3.4-5.0); Anion Gap 7 mmol/L (6-16); Blood Urea Nitrogen 21 mg/dL (8-24); Bun/Creatinine Ratio 20.6 (12.0-20.0); CO2, Blood 24 mmol/L (21-32); Calcium, Blood 8.3 mg/dL (8.5-10.1); Chloride, Blood 105 mmol/L (98-108); Creatinine, Blood 1.02 mg/dL (0.60-1.20); Glomerular Filtration Rate 81 (60-); Glucose, Blood 120 mg/dL (70-99); Phosphorus, Blood 3.5 mg/dL (2.5-4.9); Potassium, Blood 4.3 mmol/L (3.5-5.5); Sodium, Blood 136 mmol/L (136-145)
--- NOTE | 2022-01-31 06:44 | NUR ---
NOC SHIFT SUMMARY PT ORIENTED X4, COMPLAINTS OF SOA, ESPECIALLY WHEN LYING DOWN. O2 SAT REMAINS ABOVE 95 ON RA, BUT PT REQUESTING 1L NC. OTHER VSS. HEP GTT RUNNING PER PROVIDER ORDER. PT UP SBA. PT REPORTS SIGNIFICANT ABD PAIN - PRNS GIVEN W/RELIEF. PT NPO AND WITHOUT PAIN MEDICATIONS SINCE AROUND 0100 THIS AM PENDING SCAN WILL CONTINUE TO MONITOR AND PASS TO DAY RN
--- NOTE | 2022-01-31 17:40 | NUR ---
SHIFT SUMMARY PT HAS BEEN RESTING IN ROOM, THEY HAVE CALLED APPROPRIATELY FOR ASSISTANCE AND HAVE BEEN MOSTLY INDEPENDENT IN ROOM. PT HAD FAMILY COME TO VISIT IN THE AFTERNOON, THEY BROUGHT FOOD IN FOR THE PT THAT DID NOT COMPLY WITH THE PRESCRIBED DIET, THIS RN WAS NOT AWARE OF THIS UNTIL AFTER THE PT HAD EATEN. ALL VITAL SIGNS STABLE, NO ACUTE CHANGE IN CONDITION.
[2022-02-01 00:44] LABS: Albumin, Blood 3.3 g/dL (3.4-5.0); Anion Gap 6 mmol/L (6-16); Blood Urea Nitrogen 21 mg/dL (8-24); Bun/Creatinine Ratio 20.8 (12.0-20.0); CO2, Blood 28 mmol/L (21-32); Calcium, Blood 8.8 mg/dL (8.5-10.1); Chloride, Blood 103 mmol/L (98-108); Creatinine, Blood 1.01 mg/dL (0.60-1.20); Glomerular Filtration Rate 82 (60-); Glucose, Blood 173 mg/dL (70-99); Phosphorus, Blood 3.7 mg/dL (2.5-4.9); Potassium, Blood 4.1 mmol/L (3.5-5.5); Sodium, Blood 137 mmol/L (136-145)
--- NOTE | 2022-02-01 06:48 | NUR ---
SHIFT SUMMARY: PATIENT VS WNL ON RA, DENIES CHEST PAIN OR SOB. HEPARIN RUNNING PER PHARMACY, MEDICATED PER EMAR. USES URINAL AT BEDSIDE D/T IV LINES. IS LOOKING FORWARD TO GOING HOME SOON. BED LOW WITH CALL LIGHT IN REACH. NO ADVERSE EVENTS THIS SHIFT. WILL CONTINUE TO MONITOR AND REPORT TO ONCOMING RN.
[2022-02-01 09:01] LABS: Hematocrit 38.1 % (37.0-53.0); Hemoglobin 12.8 g/dL (13.5-17.5); Mean Platelet Volume 9.9 fL (9.1-12.4); Platelet Count 231 K/mm3 (150-400)
--- NOTE | 2022-02-01 17:06 | NUR ---
SHIFT SUMMARY PT HAS BEEN RESTING IN ROOM. PT HAS BEEN UP INDEPENDENTLY TO RESTROOM. HEART RATE HAS RANGED 95-115, MOST CONSISTENTLY AT 105. PT HAS BEEN PLEASANT, COOPERATIVE, AND PATIENT WITH THE CARE TEAM. ALL VITAL SIGNS HAVE BEEN STABLE AND THERE ARE NO ACUTE CHANGES IN CONDITION.
--- NOTE | 2022-02-02 03:53 | NUR ---
SHIFT SUMMARY: PATIENT A&O X4, LESS ABDOMINAL PAIN THAN PREVIOUS NOC SHIFT, HR 90-110S, AFEBRILE. DENIES SOB OR CHEST PAIN. AMBULATES TO TOILET AND HAS RESTED WELL THIS SHIFT. MEDICATED PER EMAR. BED LOW WITH CALL LIGHT IN REACH. WILL CONTINUE TO MONITOR AND REPORT TO ONCOMING RN.
[2022-02-02 04:29] LABS: Hematocrit 37.8 % (37.0-53.0); Hemoglobin 12.6 g/dL (13.5-17.5)
[2022-02-02 05:46] LABS: Albumin, Blood 3.5 g/dL (3.4-5.0); Anion Gap 7 mmol/L (6-16); Blood Urea Nitrogen 19 mg/dL (8-24); Bun/Creatinine Ratio 19.9 (12.0-20.0); CO2, Blood 26 mmol/L (21-32); Calcium, Blood 8.6 mg/dL (8.5-10.1); Chloride, Blood 105 mmol/L (98-108); Creatinine, Blood 0.96 mg/dL (0.60-1.20); Glomerular Filtration Rate 87 (60-); Glucose, Blood 142 mg/dL (70-99); Phosphorus, Blood 3.7 mg/dL (2.5-4.9); Potassium, Blood 4.5 mmol/L (3.5-5.5); Sodium, Blood 138 mmol/L (136-145)
--- NOTE | 2022-02-02 07:42 | NUR ---
Received report from Noc RN. Patient is alert and oriented and is able to communicate his needs. He is independent and positions self for comfort. He is on RA and sts 95%. He has 20ga PowerGlide in AVA and 20ga IV in LAC and both flushed and SL'd. He has been in A-Fib low 100. Called Dr Romero to transition from Morphine to something he can take at home for back pain. Patient denies any other needs. CBG 197 and will cover per SEP.
--- NOTE | 2022-02-02 09:30 | NUR ---
Resident and med student in room assessing patient. He remains on RA and is independent in diane with ambulation and repositioning. He tolerated breakfast and am meds. medicated with Ultram for back pain.
--- NOTE | 2022-02-02 12:14 | NUR ---
Patient going to be discharged home. He is sitting at bedside eating lunch. CBG 173 post lunch and not covering. He remains on RA and sats >90%.
[2022-02-02] MEDS ORDERED: ELIQUIS5 M2 PO (12:48)
[2022-02-02] MEDS ORDERED: METO50 PO (12:49)
[2022-02-02] MEDS ORDERED: OXYC5 PO (12:50)
--- NOTE | 2022-02-02 13:56 | NUR ---
Patient receivewd written discharge instructions. Reveiwed new medications and script for pain medication. He returned understanding of information. Pulled all IV access in tact and placed gauze and wrapped in coban. Patient and all his belongings were taken by wheelchair and patient went home POV.
== END 2022-02-02 13:54 | disposition home or self-care (01) | DRG 291 ==
LOC: ER 07:49 → ICUE 12:32 → PCU 12:32 → ICUE 14:16 → PCU 14:20 → ICUE 18:07 → PCU 01-30 17:41
PROVIDERS: Family Medicine; Internal Medicine Critical Care Medicine; Physician Assistant; Student in an Organized Health Care Education/Training Program; ADMIT Hospitalist
PROC: 5A09357 Assistance with Respiratory Ventilation, Less than 24 Consecutive Hours, Continuous Positive Airway Pressure (ICD-10-PCS; principal; 2022-01-29)
DX: I11.0 Hypertensive heart disease with heart failure (principal); I50.21 Acute systolic (congestive) heart failure; J96.01 Acute respiratory failure with hypoxia; I48.91 Unspecified atrial fibrillation; B19.20 Unspecified viral hepatitis C without hepatic coma; Z20.822 Contact with and (suspected) exposure to COVID-19; I95.9 Hypotension, unspecified; F10.20 Alcohol dependence, uncomplicated; J45.909 Unspecified asthma, uncomplicated; K74.60 Unspecified cirrhosis of liver; E11.649 Type 2 diabetes mellitus with hypoglycemia without coma; Z98.890 Other specified postprocedural states; Z87.891 Personal history of nicotine dependence; Z79.4 Long term (current) use of insulin; Z79.899 Other long term (current) drug therapy
CPT/HCPCS: 0241U; 36415; 36600; 71045; 71260; 74177; 76705; 78226; 80053; 80069; 82803; 82947; 83880; 84100; 84443; 84484; 85014; 85018; 85025; 85049; 85379; 85520; 85730; 93005; 93010; 93306; 94660; 96365-59; 96366-59; 96375-59; 96376-59; 99285-25; A9270; A9537; C1751; J1644; J1650; J1815; J1940; J2060; J2270; J2543; J7030; J7040; J7042; P9041; Q9967

== ENCOUNTER 2022-03-29 15:11 | Observation (INO) | payer MEDICARE ==
[~2022-03-29] VITALS: Ht 170.2 cm; Wt 68.0 kg
[~2022-03-29 15:11] MED LIST changes: +Acetaminophen650 M1 PO; +BENADRYL25 MG PO; +BUME2 PO; +BUSP5 PO; +DIGOX125 MC1 PO; +ELIQUIS5 M2 PO; +FURO20 PO; +METO50 PO; +METPRE4DP PO; +OXYC5 PO
[2022-03-29 16:39] LABS: BASOPHILS ABSOLUTE AUTO 0.03 K/mm3 (0.00-0.23); BASOPHILS PERCENT AUTO 1 % (0-2); EOSINOPHILS ABSOLUTE AUTO 0.44 K/mm3 (0.00-0.68); EOSINOPHILS PERCENT AUTO 8 % (0-6); Hematocrit 40.7 % (37.0-53.0); Hemoglobin 13.5 g/dL (13.5-17.5); IMMATURE GRAN ABSOLUTE AUTO 0.06 K/mm3 (0.00-0.10); IMMATURE GRAN PERCENT AUTO 1 % (0-1); LYMPHOCYTES ABSOLUTE AUTO 1.06 K/mm3 (0.84-5.20); LYMPHOCYTES PERCENT AUTO 18 % (21-46); MONOCYTES ABSOLUTE AUTO 0.46 K/mm3 (0.16-1.47); MONOCYTES PERCENT AUTO 8 % (4-13); Mean Corpuscular HGB 27.4 pg (26.0-34.0); Mean Corpuscular HGB Conc 33.2 g/dL (31.5-36.5); Mean Corpuscular Volume 83 fL (80-100); Mean Platelet Volume 9.2 fL (9.1-12.4); NEUTROPHILS ABSOLUTE AUTO 3.73 K/mm3 (1.96-9.15); NEUTROPHILS PERCENT AUTO 65 % (41-73); Platelet Count 266 K/mm3 (150-400); RDW Coefficient Variation 12.7 % (11.7-14.2); RDW Standard Deviation 38.4 fL (35.1-46.3); Red Blood Cell Count 4.92 M/mm3 (4.30-5.90); White Blood Cell Count 5.78 K/mm3 (4.00-11.30)
[2022-03-29 17:03] LABS: Albumin, Blood 3.2 g/dL (3.4-5.0); Albumin/Globulin Ratio 0.7 (0.8-1.8); Bilirubin, Total 0.7 mg/dL (0.1-1.0); Bun/Creatinine Ratio 14.1 (12.0-20.0); Calcium, Blood 9.6 mg/dL (8.5-10.1); Creatinine, Blood 0.85 mg/dL (0.60-1.20); Globulin, Blood 4.3 g/dL (2.2-4.0); Potassium, Blood 4.7 mmol/L (3.5-5.5); Total Protein, Blood 7.5 g/dL (6.4-8.2)
[2022-03-29] MEDS ORDERED: DIGOXIN PO (17:55)
--- NOTE | 2022-03-30 00:37 | NUR ---
PT CAME UP FROM THE ED ON CARDIZEM @10, TITRATED UP TO 15 UPON ARRIVAL. HR RANGING FROM 110-150 BPM. CONTROL CLERK CALLED ABOUT PT'S ANXIETY, HR, AND RASH. IS GOING TO PUT IN ORDERS FOR THE CONCERNS. SHE WOULD LIKE THE METOPROLOL GIVEN THAT WAS HELD IN THE ED. SEE NOTES FOR UPDATES.
--- NOTE | 2022-03-30 04:21 | NUR ---
SHIFT SUMMARY PT CAME FROM THE ED THIS LAST EVENING AROUND 0000.HE CAME IN W/ AFIB RVR AND ON A CARDIZEM DRIP. SEE PREV NOTES FOR TITRATION UPDATES. HE WAS GIVEN 100MG OF LOPRESSOR, AND IS CURRENTLY OFF THE DRIP. HR 65-90BPM, BP'S SOFT (MAP THERAPUTIC SEE VS IN CHART), AND FEVER WAS AT 99.3 WHICH HAS COME DOWN TO 98.5. HE HAS BEEN VERY ANXIOUS TONIGHT, BUT HAS BEEN SLEEPING SINCE MELITONIN WAS GIVEN. GF WAS IN THE ROOM UPON ARRIVAL, AND HELPED W/ PT'S HX. PT HAS CHRONIC NECK/BACK PAIN, A RASH THROUGHOUT HIS BODY, AND A FEW WHAT APPEARS TO BE INGROWN HAIRS ON HIS PUBIS (THESE ARE THE PT'S ONLY COMPLAINTS). CALL LIGHT IS IN REACH, VS BEING CLOSELY WATCHED, AND I WILL CONTINUE TO MONITOR UNTIL REPORT IS GIVEN TO THE NEXT NURSE.
[2022-03-30 04:57] LABS: BASOPHILS ABSOLUTE AUTO 0.02 K/mm3 (0.00-0.23); BASOPHILS PERCENT AUTO 0 % (0-2); EOSINOPHILS ABSOLUTE AUTO 0.07 K/mm3 (0.00-0.68); EOSINOPHILS PERCENT AUTO 1 % (0-6); Hemoglobin 12.7 g/dL (13.5-17.5); IMMATURE GRAN ABSOLUTE AUTO 0.04 K/mm3 (0.00-0.10); IMMATURE GRAN PERCENT AUTO 1 % (0-1); LYMPHOCYTES ABSOLUTE AUTO 0.75 K/mm3 (0.84-5.20); LYMPHOCYTES PERCENT AUTO 15 % (21-46); MONOCYTES ABSOLUTE AUTO 0.12 K/mm3 (0.16-1.47); MONOCYTES PERCENT AUTO 2 % (4-13); Mean Corpuscular HGB 27.2 pg (26.0-34.0); Mean Corpuscular HGB Conc 32.6 g/dL (31.5-36.5); Mean Corpuscular Volume 84 fL (80-100); Mean Platelet Volume 9.5 fL (9.1-12.4); NEUTROPHILS ABSOLUTE AUTO 3.97 K/mm3 (1.96-9.15); NEUTROPHILS PERCENT AUTO 80 % (41-73); Platelet Count 271 K/mm3 (150-400); RDW Coefficient Variation 12.7 % (11.7-14.2); RDW Standard Deviation 38.3 fL (35.1-46.3); Red Blood Cell Count 4.67 M/mm3 (4.30-5.90); White Blood Cell Count 4.97 K/mm3 (4.00-11.30)
[2022-03-30 05:11] LABS: Bun/Creatinine Ratio 20.7 (12.0-20.0); Calcium, Blood 8.7 mg/dL (8.5-10.1); Creatinine, Blood 0.87 mg/dL (0.60-1.20); Potassium, Blood 5.2 mmol/L (3.5-5.5)
--- NOTE | 2022-03-30 06:03 | NUR ---
GIRLFRIEND DARIANA CALLED FOR AN UPDATE. SHE IS APPROVED FOR INFORMATION, AND WAS GIVEN AN UPDATE.
--- NOTE | 2022-03-30 08:03 | NUR ---
AM ASSESSMENT: Pt resting in bed. Seems slightly anxious. States that his rash seems a little better and states that he is not as itchy as he was. HR irreg, tele shows afib in rate of 80-110. LS clear. BT positive. Pulses palp. Pt does have a red rash that is noticable around the ankles, inner thigh and sides. Pt shared concerns about taking the Metoprolol. States that he thinks this medication is what has been giving him the rash. States "I know I need to take it for my heart rate, but I think that is what is making me itch all over. This rash and itching were making me crazy." Pt did agree to take the metoprolol this AM and see how he feels after it. Call light in reach. Will continue to monitor.
--- NOTE | 2022-03-30 12:01 | NUR ---
Update: Pt called RN into room around 1030 and stated that he was starting to itch. Increased redness noted around ankles and on the inner thigh. Atarax given. Physician aware and medication changes were made (see orders). Pt denies other needs. Currently sitting up and eating lunch. Pt seems much more comfortable and less anxious after medications changes. Call light in reach. Will continue to monitor and treat.
--- NOTE | 2022-03-30 16:54 | NUR ---
Shift Summary: Pt resting in bed. VSS throughout shift. Rash has remained stable with minimal changes. Pt states that he has had some itching on and off throughout the day. Has been medicated per orders. Pt HR has been 80-110's in AFIB throughout the day. BP has remained stable. No other changes this shift. Report given to HUSSAIN Castellano and care transfered.
--- NOTE | 2022-03-30 18:40 | NUR ---
Assumed care of patient at approx 1645. Pt reporting increased itiching, notified Dr Trujillo, new orders entered. No other acute changes. Will continue to monitor until report given to oncoming rn.
[2022-03-31 04:36] LABS: Anion Gap 5 mmol/L (6-16); Blood Urea Nitrogen 18 mg/dL (8-24); Bun/Creatinine Ratio 23.7 (12.0-20.0); CO2, Blood 27 mmol/L (21-32); Chloride, Blood 106 mmol/L (98-108); Creatinine, Blood 0.76 mg/dL (0.60-1.20); Digoxin (Lanoxin) 1.16 ug/mL (0.80-2.00); Glomerular Filtration Rate 99 (60-); Glucose, Blood 247 mg/dL (70-99); Magnesium, Blood 1.4 mg/dL (1.6-2.4); Potassium, Blood 4.4 mmol/L (3.5-5.5); Sodium, Blood 138 mmol/L (136-145)
--- NOTE | 2022-03-31 05:01 | NUR ---
SHIFT SUMMARY PT IS A&OX4, IND IN ROOM, PCU STATUS, AND HAS BEEN SLEEPING T/O THE NIGHT. PT WAS GIVEN HIS RESTORIL REQUESTED AND HAS HAD NO COMPLAINTS TONIGHT. HIS VS HAVE BEEN STABLE AND HIS RASH IS BEGINING TO LOOK BETTER SINCE LAST NIGHT. PLAN FOR POSSIBLE D/C TODAY. CALL LIGHT IN REACH, AND I WILL CONTINUE TO MONITOR UNTIL REPORT IS GIVEN TO THE ONCOMING SHIFT NURSE.
--- NOTE | 2022-03-31 08:01 | NUR ---
Am Note Pt alert, oriented x4; calm and cooperative with care. Pt resting in bed during shift. Up in room ind. Rash is head teller than previous day, pt reports greatly decreased itching. Pt denies pain, chest pain/pressure, nasuea, dizziness and numb/tingling. Tele afib 100-120's touching 130's with movement. Ls clear, breathing even and unlabored, spo2 >90% on ra. Pt abd soft, nontender with normoactive bt. Pt using urinal at bedside. Other vss. No other acute changes noted during shift. Will continue to monitor.
[2022-03-31] MEDS ORDERED: DIGOX250 MCG PO (10:19)
[2022-03-31] MEDS ORDERED: PRED20 PO (10:21)
[2022-03-31] MEDS ORDERED: HYDHCL25 PO (10:22)
[2022-03-31] MEDS ORDERED: TEMA15 PO (10:22)
--- NOTE | 2022-03-31 12:11 | NUR ---
Discharge Summary Pt heart rate 110-120's touching 130-140, discussed with md, no new orders, will continue with plans for discharge. No acute changes noted. Educated pt on discharge instructions, follow up appointment and prescriptions. Prescriptions faxed to [facility] per pt request. Pt left room via wheelchair at 1140.
== END 2022-03-31 12:04 | disposition home or self-care (01) ==
LOC: ER 15:11 → PCU 21:55
PROVIDERS: Family Medicine; Internal Medicine; Physician Assistant; ADMIT Internal Medicine
DX: I48.91 Unspecified atrial fibrillation (principal); I11.0 Hypertensive heart disease with heart failure; I50.32 Chronic diastolic (congestive) heart failure; R21 Rash and other nonspecific skin eruption; E11.9 Type 2 diabetes mellitus without complications; K70.30 Alcoholic cirrhosis of liver without ascites; Z87.891 Personal history of nicotine dependence; Z79.01 Long term (current) use of anticoagulants; Z88.8 Allergy status to other drugs, medicaments and biological substances; Z79.84 Long term (current) use of oral hypoglycemic drugs; J44.9 Chronic obstructive pulmonary disease, unspecified; K81.9 Cholecystitis, unspecified
CPT/HCPCS: 36415; 80048; 80053; 80162; 82947; 83735; 85025; 93005; 93010; 96365; 96366; 96367; 96375; 96376; 99285-25; A9270; G0378; J1160; J1200; J3475; J7512

== ENCOUNTER 2022-11-19 06:02 | Day surgery (SDC) | payer MEDICARE ==
[2022-11-19] VITALS (10 sets, daily range): BP systolic 138–159; BP diastolic 59–83
[~2022-11-19] VITALS: Ht 172.7 cm; Wt 72.5 kg
[~2022-11-19 06:02] MED LIST changes: +DIGOX250 MCG PO; +DIGOXIN PO; +FINA5 PO; +PRED20 PO; +SPIR25 PO; +TAMS.4ER PO; +TEMA15 PO
[2022-11-19] MEDS ORDERED: AMIODARONE HCL100 M3 (06:37)
--- NOTE | 2022-11-19 07:12 | NUR ---
Patient up to Ambulate independently. Gait steady. Surgical site prepped with 2% Chlorhexidine cloth wipe. History, Chart, Medications and Allergies reviewed before start of procedure. Lungs clear T/O to Auscultation. Patient confirms NPO status and agrees with scheduled surgery. Pre-Op teaching done. Pt verbalizes understanding. Patient States Post-Procedure ride home has been arranged WITH GIRLFRIEND.
--- NOTE | 2022-11-19 09:58 | NUR ---
11/19/22 0958 Keisha Zimmer PLACED, METHALYNE BLUE AND ICG ADDED TO STERILE WATER AND SOLUTION WAS USED TO IRRIGATE. 150MLS OF URINE IN BUSTOS BAG AFTER REMOVING CATHETER
--- NOTE | 2022-11-19 11:21 | NUR ---
REPORT RECEIVED FROM SANDRA RONQUILLO RN. VSS. PT ON 1L O2 VIA NASAL CANNULA. PT DENIES PAIN OR DISCOMFORT AT THIS TIME. PT TOLERATING PO FLUIDS WELL. AT BEDSIDE. PT DRESSING C/D/I WITHOUT DRAINAGE, REDNESS, OR SWELLING.
--- NOTE | 2022-11-19 11:56 | NUR ---
Patient up to Ambulate independently. Gait steady. Discharge instructions reviewed with patient. Patient verbalizes understanding. Copy given to patient to take home. Dressing to procedure site clean, dry, intact with no visible drainage, swelling, erythema or bruising noted. Patient States Post-Procedure ride home has been arranged. Discharged via wheelchair to private car for ride home. PT BELONGINGS RETURNED TO PT.
== END 2022-11-19 22:56 | disposition home or self-care (01) ==
LOC: ORSCMMR 06:02 → ORD 07:30 → ORSCMMR 22:56
PROVIDERS: Surgery
PROC: 8E0W4CZ Robotic Assisted Procedure of Trunk Region, Percutaneous Endoscopic Approach (ICD-10-PCS; principal; 2022-11-19 07:30)
PROC: 3E0M45Z Introduction of Adhesion Barrier into Peritoneal Cavity, Percutaneous Endoscopic Approach (ICD-10-PCS; principal; 2022-11-19 07:30)
PROC: 0YU64JZ Supplement Left Inguinal Region with Synthetic Substitute, Percutaneous Endoscopic Approach (ICD-10-PCS; principal; 2022-11-19 07:30)
DX: K40.30 Unilateral inguinal hernia, with obstruction, without gangrene, not specified as recurrent (principal); K66.0 Peritoneal adhesions (postprocedural) (postinfection); I10 Essential (primary) hypertension; I48.91 Unspecified atrial fibrillation; Z79.01 Long term (current) use of anticoagulants; J44.9 Chronic obstructive pulmonary disease, unspecified; Z87.891 Personal history of nicotine dependence; E11.9 Type 2 diabetes mellitus without complications; B18.2 Chronic viral hepatitis C; Z86.718 Personal history of other venous thrombosis and embolism; Z79.84 Long term (current) use of oral hypoglycemic drugs; Z79.899 Other long term (current) drug therapy
CPT/HCPCS: 49650; S2900; 82947; A9270; C1781; J0690; J1100; J1885; J2250; J2370; J2405; J2704; J3010; J7120; Q9968

== ENCOUNTER → 2023-01-28 | Outpatient (CLI) | payer MEDICARE ==
[~2023-01-28] MED LIST changes: +ALFUZOSIN HCL10 MG PO; +AMIODARONE HCL100 M3; +DRON400T; +STEGLATRO5 MG PO
== END | disposition home or self-care (01) ==
LOC: LAB 15:29 → LAB SHORT 15:29
DX: E11.9 Type 2 diabetes mellitus without complications (principal)
CPT/HCPCS: 82043

== ENCOUNTER 2023-04-26 05:51 | Emergency (ER) | payer MEDICARE ==
[~2023-04-26] VITALS: Ht 172.7 cm; Wt 73.0 kg
[2023-04-26] MEDS ORDERED: ELIQUIS5 M3 PO (06:11)
[2023-04-26] MEDS ORDERED: OXYC5 PO (06:11)
[2023-04-26] MEDS ORDERED: SERT25 PO (06:11)
[2023-04-26 07:18] LABS: BASOPHILS ABSOLUTE AUTO 0.03 K/mm3 (0.00-0.23); BASOPHILS PERCENT AUTO 1 % (0-2); EOSINOPHILS ABSOLUTE AUTO 0.13 K/mm3 (0.00-0.68); EOSINOPHILS PERCENT AUTO 3 % (0-6); Hematocrit 41.7 % (37.0-53.0); Hemoglobin 13.7 g/dL (13.5-17.5); IMMATURE GRAN ABSOLUTE AUTO 0.04 K/mm3 (0.00-0.10); IMMATURE GRAN PERCENT AUTO 1 % (0-1); LYMPHOCYTES ABSOLUTE AUTO 0.68 K/mm3 (0.84-5.20); LYMPHOCYTES PERCENT AUTO 14 % (21-46); MONOCYTES ABSOLUTE AUTO 0.72 K/mm3 (0.16-1.47); MONOCYTES PERCENT AUTO 15 % (4-13); Mean Corpuscular HGB 25.3 pg (26.0-34.0); Mean Corpuscular HGB Conc 32.9 g/dL (31.5-36.5); Mean Corpuscular Volume 77 fL (80-100); Mean Platelet Volume 8.9 fL (9.1-12.4); NEUTROPHILS ABSOLUTE AUTO 3.19 K/mm3 (1.96-9.15); NEUTROPHILS PERCENT AUTO 67 % (41-73); Platelet Count 203 K/mm3 (150-400); RDW Coefficient Variation 13.3 % (11.7-14.2); RDW Standard Deviation 37.1 fL (35.1-46.3); Red Blood Cell Count 5.42 M/mm3 (4.30-5.90); White Blood Cell Count 4.79 K/mm3 (4.00-11.30)
[2023-04-26 07:36] LABS: Source, Urine Clean Catch
[2023-04-26 07:41] LABS: Albumin, Blood 3.5 g/dL (3.4-5.0); Albumin/Globulin Ratio 0.7 (0.8-1.8); Bilirubin, Total 0.6 mg/dL (0.1-1.0); Bun/Creatinine Ratio 19.7 (12.0-20.0); Calcium, Blood 9.3 mg/dL (8.5-10.1); Creatinine, Blood 1.17 mg/dL (0.60-1.20); Globulin, Blood 5.2 g/dL (2.2-4.0); Potassium, Blood 4.8 mmol/L (3.5-5.5); Total Protein, Blood 8.7 g/dL (6.4-8.2)
[2023-04-26 07:43] LABS: Appearance, Urine Clear (Clear); Bilirubin, Urine Neg (Neg); Blood, Urine 1+ (Neg); Color, Urine Yellow (P-Yellow); Glucose Qualitative, Urine 4+ (Neg); Ketones, Urine Neg (Neg); Leukocyte Esterase, Urine Neg (Neg); Nitrite, Urine Neg (Neg); Protein, Urine Neg (Neg); Specific Gravity, Urine 1.015 (1.003-1.022); Urobilinogen, Urine NORM (Normal)
[2023-04-26 08:10] LABS: Bacteria Rare /hpf; Squamous Epithelial Cells Rare /hpf (Few); White Blood Cells, Urine Not Seen /hpf (0-5)
[2023-04-26] MEDS ORDERED: DOC250 PO (08:35)
[2023-04-26] MEDS ORDERED: MORP15ER PO (08:35)
[2023-04-26 09:30] VITALS: BP 120/99
[2023-04-27] MEDS ORDERED: Amiodarone HCl200 MG PO (07:49)
[2023-04-27] MEDS ORDERED: TAMS.4ER PO (07:50)
[2023-04-27] MEDS ORDERED: STEGLATRO5 MG PO (07:51)
== END 2023-04-26 09:42 | disposition home or self-care (01) ==
LOC: ER 05:51
PROVIDERS: Emergency Medicine
DX: G89.18 Other acute postprocedural pain (principal); R10.9 Unspecified abdominal pain; E87.1 Hypo-osmolality and hyponatremia; Z88.8 Allergy status to other drugs, medicaments and biological substances; Z79.899 Other long term (current) drug therapy; Z79.84 Long term (current) use of oral hypoglycemic drugs; Z79.4 Long term (current) use of insulin; Z87.891 Personal history of nicotine dependence; I50.9 Heart failure, unspecified; I48.91 Unspecified atrial fibrillation; E11.9 Type 2 diabetes mellitus without complications; I11.0 Hypertensive heart disease with heart failure
CPT/HCPCS: 74177; 80053; 81001; 83690; 85025; 96361; 96374; 96375; 99284-25; A9270; J1170; J2405; J7030; Q9967

== ENCOUNTER 2023-04-27 06:56 | Day surgery (SDC) | payer MEDICARE ==
[~2023-04-27] VITALS: Ht 170.2 cm; Wt 73.5 kg
[2023-04-27] VITALS (15 sets, daily range): BP systolic 94–138; BP diastolic 61–93
[~2023-04-27 06:56] MED LIST changes: +DOC250 PO; +ELIQUIS5 M3 PO; +MORP15ER PO; +SERT25 PO
[2023-04-27] MEDS ORDERED: Amiodarone HCl200 MG PO (07:49)
[2023-04-27] MEDS ORDERED: TAMS.4ER PO (07:50)
[2023-04-27] MEDS ORDERED: STEGLATRO5 MG PO (07:51)
--- NOTE | 2023-04-27 08:35 | NUR ---
PT SLEEPING POST CARDIOVERSION. ROUSES EASILY TO VERBAL STIMULI. VSS, CALL LIGHT IN REACH. SPOUSE AND SON AT BEDSIDE.
--- NOTE | 2023-04-27 09:25 | NUR ---
IV DC'D, CATH INTACT. PT AND SO VERBALIZED UNDERSTANDING OF DC INSTRUCTIONS AND FOLLOW UP INFO. PT AWAKE, TAKING PO FLUIDS WITHOUT DIFFICULTY AT TIME OF DC. OUT TO CAR VIA WHEELCHAIR, SON IS DRIVING PT HOME.
== END 2023-04-27 09:30 | disposition home or self-care (01) ==
LOC: MHTC 06:56
DX: I48.0 Paroxysmal atrial fibrillation (principal); E78.00 Pure hypercholesterolemia, unspecified; I11.0 Hypertensive heart disease with heart failure; I50.30 Unspecified diastolic (congestive) heart failure; E11.9 Type 2 diabetes mellitus without complications; Z79.84 Long term (current) use of oral hypoglycemic drugs; Z87.891 Personal history of nicotine dependence
CPT/HCPCS: 92960; 93005; 93010; 99152; 99153; A9270; J1200; J2250; J2310; J3010; J7030

== ENCOUNTER 2023-05-04 08:58 | Day surgery (SDC) | payer MEDICARE ==
[~2023-05-04] VITALS: Ht 172.7 cm; Wt 70.6 kg
[~2023-05-04 08:58] MED LIST changes: +Amiodarone HCl200 MG PO
[2023-05-04 11:10] VITALS: BP 108/67
== END 2023-05-04 11:00 | disposition home or self-care (01) ==
LOC: ORSCSDS 08:58
PROVIDERS: Internal Medicine Gastroenterology
PROC: 0DB58ZX Excision of Esophagus, Via Natural or Artificial Opening Endoscopic, Diagnostic (ICD-10-PCS; 2023-05-04)
PROC: 0D757ZZ Dilation of Esophagus, Via Natural or Artificial Opening (ICD-10-PCS; principal; 2023-05-04 10:15)
DX: R13.10 Dysphagia, unspecified (principal); K74.69 Other cirrhosis of liver; I10 Essential (primary) hypertension; E11.9 Type 2 diabetes mellitus without complications; Z86.19 Personal history of other infectious and parasitic diseases; F32.A Depression, unspecified; F43.10 Post-traumatic stress disorder, unspecified; J44.9 Chronic obstructive pulmonary disease, unspecified; F41.9 Anxiety disorder, unspecified; K76.0 Fatty (change of) liver, not elsewhere classified; I48.91 Unspecified atrial fibrillation; Z87.891 Personal history of nicotine dependence; Z79.84 Long term (current) use of oral hypoglycemic drugs; Z79.899 Other long term (current) drug therapy
CPT/HCPCS: 82947; 88305; J2001; J2704; J7120

== ENCOUNTER 2023-05-11 03:42 | Emergency (ER) | payer MEDICARE ==
[~2023-05-11] VITALS: Ht 172.7 cm; Wt 69.0 kg
[2023-05-11] MEDS ORDERED: OXYC5 PO (03:58)
[2023-05-11 04:06] LABS: BASOPHILS ABSOLUTE AUTO 0.03 K/mm3 (0.00-0.23); BASOPHILS PERCENT AUTO 1 % (0-2); EOSINOPHILS PERCENT AUTO 2 % (0-6); Hematocrit 35.5 % (37.0-53.0); Hemoglobin 11.5 g/dL (13.5-17.5); IMMATURE GRAN ABSOLUTE AUTO 0.04 K/mm3 (0.00-0.10); IMMATURE GRAN PERCENT AUTO 1 % (0-1); LYMPHOCYTES PERCENT AUTO 12 % (21-46); MONOCYTES PERCENT AUTO 9 % (4-13); Mean Corpuscular HGB 25.2 pg (26.0-34.0); Mean Corpuscular HGB Conc 32.4 g/dL (31.5-36.5); Mean Corpuscular Volume 78 fL (80-100); Mean Platelet Volume 8.7 fL (9.1-12.4); NEUTROPHILS ABSOLUTE AUTO 4.37 K/mm3 (1.96-9.15); NEUTROPHILS PERCENT AUTO 76 % (41-73); Platelet Count 263 K/mm3 (150-400); RDW Coefficient Variation 13.4 % (11.7-14.2); RDW Standard Deviation 37.8 fL (35.1-46.3); Red Blood Cell Count 4.57 M/mm3 (4.30-5.90); White Blood Cell Count 5.74 K/mm3 (4.00-11.30)
[2023-05-11 04:33] LABS: Alanine Aminotransfer (ALT/SGP 21 U/L (12-78); Albumin/Globulin Ratio 0.6 (0.8-1.8); Alk Phos 87 U/L (50-136); Anion Gap 7 mmol/L (6-16); Aspartate Aminotrans (AST/SGOT 19 U/L (12-37); Bilirubin, Total 0.4 mg/dL (0.1-1.0); Blood Urea Nitrogen 23 mg/dL (8-24); Bun/Creatinine Ratio 17.3 (12.0-20.0); CO2, Blood 25 mmol/L (21-32); Chloride, Blood 102 mmol/L (98-108); Creatinine, Blood 1.33 mg/dL (0.60-1.20); Globulin, Blood 5.1 g/dL (2.2-4.0); Glomerular Filtration Rate 59 (60-); Glucose, Blood 148 mg/dL (70-99); Potassium, Blood 4.4 mmol/L (3.5-5.5); Sodium, Blood 134 mmol/L (136-145); Total Protein, Blood 8.1 g/dL (6.4-8.2)
[2023-05-11 06:34] LABS: Source, Urine Clean Catch
[2023-05-11 06:40] LABS: Appearance, Urine Clear (Clear); Bilirubin, Urine Neg (Neg); Blood, Urine Neg (Neg); Color, Urine Yellow (P-Yellow); Glucose Qualitative, Urine 4+ (Neg); Ketones, Urine Neg (Neg); Leukocyte Esterase, Urine Neg (Neg); Nitrite, Urine Neg (Neg); Protein, Urine Neg (Neg); Urobilinogen, Urine NORM (Normal)
[2023-05-11] MEDS ORDERED: Roxicodone5 MG PO (08:23)
[2023-05-11 08:54] VITALS: BP 144/73
== END 2023-05-11 08:54 | disposition home or self-care (01) ==
LOC: ER 03:42
PROVIDERS: Emergency Medicine
DX: R10.11 Right upper quadrant pain (principal); C22.8 Malignant neoplasm of liver, primary, unspecified as to type; E11.9 Type 2 diabetes mellitus without complications; I11.0 Hypertensive heart disease with heart failure; I50.9 Heart failure, unspecified; I48.91 Unspecified atrial fibrillation; J45.909 Unspecified asthma, uncomplicated; Z87.891 Personal history of nicotine dependence; Z88.8 Allergy status to other drugs, medicaments and biological substances; Z79.84 Long term (current) use of oral hypoglycemic drugs; Z79.01 Long term (current) use of anticoagulants; Z79.899 Other long term (current) drug therapy
CPT/HCPCS: 71045; 74177; 80053; 81003; 83690; 85025; 96361; 96374; 96375; 96376; 99285-25; J1170; J2405; J7030; Q9967

== ENCOUNTER 2023-06-08 08:11 | Day surgery (SDC) | payer MEDICARE ==
[~2023-06-08] VITALS: Ht 172.7 cm; Wt 65.7 kg
[2023-06-08 11:38] VITALS: BP 111/62
== END 2023-06-08 11:36 | disposition home or self-care (01) ==
LOC: ORSCSDS 08:11
PROVIDERS: Internal Medicine Gastroenterology
PROC: 0DBK8ZX Excision of Ascending Colon, Via Natural or Artificial Opening Endoscopic, Diagnostic (ICD-10-PCS; principal; 2023-06-08 09:30)
DX: Z12.11 Encounter for screening for malignant neoplasm of colon (principal); Z86.010 Personal history of colon polyps; Z83.719 Family history of colon polyps, unspecified; K63.5 Polyp of colon; I10 Essential (primary) hypertension; J44.9 Chronic obstructive pulmonary disease, unspecified; F41.9 Anxiety disorder, unspecified; K74.60 Unspecified cirrhosis of liver; F43.10 Post-traumatic stress disorder, unspecified; E11.9 Type 2 diabetes mellitus without complications; Z86.19 Personal history of other infectious and parasitic diseases; Z87.891 Personal history of nicotine dependence; Z79.01 Long term (current) use of anticoagulants; Z79.4 Long term (current) use of insulin; Z79.899 Other long term (current) drug therapy
CPT/HCPCS: 82947; 88305; J2704; J7120

== ENCOUNTER 2024-02-09 12:27 | Day surgery (SDC) | payer MEDICARE ==
[2024-02-09] VITALS (12 sets, daily range): BP systolic 98–127; BP diastolic 65–90
[~2024-02-09] VITALS: Ht 172.7 cm; Wt 68.0 kg
[2024-02-09] MEDS ORDERED: NS 1,000 ML IV ONE (12:32)
--- NOTE | 2024-02-09 13:55 | NUR ---
PT AWAKENS TO VERBAL STIMULI. DENIES ANY CHEST PAIN OR PRESSURE. REMAINS IN NSR AT THIS TIME. VSS.
[2024-02-09] MEDS ORDERED: Propofol 10mg/ml 20 ml Vial (Procedural) IV ONE (14:38)
[2024-02-09] MEDS ORDERED: Midazolam HCl 1MG / ML 2ML Vial IV ONE (14:38)
== END 2024-02-09 22:53 | disposition home or self-care (01) ==
LOC: MHTC 12:27
DX: I48.0 Paroxysmal atrial fibrillation (principal); E11.9 Type 2 diabetes mellitus without complications; I11.0 Hypertensive heart disease with heart failure; I50.20 Unspecified systolic (congestive) heart failure; Z88.8 Allergy status to other drugs, medicaments and biological substances; Z79.84 Long term (current) use of oral hypoglycemic drugs; Z79.01 Long term (current) use of anticoagulants; Z79.899 Other long term (current) drug therapy
CPT/HCPCS: 92960; J2250; J2704; J7030

== ENCOUNTER 2024-05-04 09:01 | Emergency (ER) | payer MEDICARE ==
[~2024-05-04] VITALS: Ht 172.7 cm; Wt 65.8 kg
[2024-05-04 10:18] LABS: BASOPHILS ABSOLUTE AUTO 0.02 K/mm3 (0.00-0.23); BASOPHILS PERCENT AUTO 0 % (0-2); EOSINOPHILS ABSOLUTE AUTO 0.26 K/mm3 (0.00-0.68); EOSINOPHILS PERCENT AUTO 4 % (0-6); Hemoglobin 14.4 g/dL (13.5-17.5); IMMATURE GRAN ABSOLUTE AUTO 0.04 K/mm3 (0.00-0.10); IMMATURE GRAN PERCENT AUTO 1 % (0-1); LYMPHOCYTES ABSOLUTE AUTO 0.84 K/mm3 (0.84-5.20); LYMPHOCYTES PERCENT AUTO 12 % (21-46); MONOCYTES ABSOLUTE AUTO 0.52 K/mm3 (0.16-1.47); MONOCYTES PERCENT AUTO 7 % (4-13); Mean Corpuscular Volume 88 fL (80-100); Mean Platelet Volume 8.9 fL (9.1-12.4); NEUTROPHILS ABSOLUTE AUTO 5.42 K/mm3 (1.96-9.15); NEUTROPHILS PERCENT AUTO 76 % (41-73); Platelet Count 228 K/mm3 (150-400); RDW Standard Deviation 41.8 fL (35.1-46.3); Red Blood Cell Count 5.14 M/mm3 (4.30-5.90)
[2024-05-04 10:23] LABS: Albumin, Blood 3.5 g/dL (3.4-5.0); Albumin/Globulin Ratio 0.7 (0.8-1.8); Bilirubin, Total 0.4 mg/dL (0.1-1.0); Bun/Creatinine Ratio 24.7 (12.0-20.0); Calcium, Blood 9.7 mg/dL (8.5-10.1); Creatinine, Blood 0.93 mg/dL (0.60-1.20); Globulin, Blood 4.7 g/dL (2.2-4.0); Potassium, Blood 5.4 mmol/L (3.5-5.5); Total Protein, Blood 8.2 g/dL (6.4-8.2)
[2024-05-04] MEDS ORDERED: PRILOSEC OTC20 MG PO (10:34)
[2024-05-04] MEDS ORDERED: HYDROmorphone HCl/Pf 1MG SYR IV ONE (10:45)
[2024-05-04] MEDS ORDERED: Ondansetron HCl 2 MG / ML 2ML Vial IV ONE (10:45)
[2024-05-04] MEDS ORDERED: HYDMOR2 PO (11:08)
[2024-05-04 11:30] VITALS: BP 114/81
== END 2024-05-04 11:36 | disposition home or self-care (01) ==
LOC: ER 09:01
PROVIDERS: Physician Assistant
DX: M65.812 Other synovitis and tenosynovitis, left shoulder (principal); I48.91 Unspecified atrial fibrillation; I10 Essential (primary) hypertension; E11.9 Type 2 diabetes mellitus without complications; Z87.891 Personal history of nicotine dependence; Z88.8 Allergy status to other drugs, medicaments and biological substances; Z79.84 Long term (current) use of oral hypoglycemic drugs; Z79.899 Other long term (current) drug therapy
CPT/HCPCS: 73030; 80053; 85025; 93005; 93010; 96374; 96375; 99283-25; J1170; J1171; J2405

== ENCOUNTER 2024-08-22 06:54 | Day surgery (SDC) | payer MEDICARE ==
[~2024-08-22] VITALS: Ht 172.7 cm; Wt 21.1 kg
[~2024-08-22 06:54] MED LIST changes: +HYDMOR2 PO; +LOPE2C PO; +PRILOSEC OTC20 MG PO
[2024-08-22] MEDS ORDERED: Lidocaine HCl/Pf 1% 5 ML VIAL ONE (07:53)
[2024-08-22] MEDS ORDERED: Lactated Ringer's 1,000 ML IV ONE ×2 (07:53→08:12)
[2024-08-22] MEDS ORDERED: propofoL 50 ML IV ONE (07:54)
[2024-08-22 08:55] VITALS: BP 111/70
== END 2024-08-22 08:50 | disposition home or self-care (01) ==
LOC: ORSCSDS 06:54
PROVIDERS: Internal Medicine Gastroenterology
PROC: 0DJ08ZZ Inspection of Upper Intestinal Tract, Via Natural or Artificial Opening Endoscopic (ICD-10-PCS; principal; 2024-08-22 08:15)
DX: R13.10 Dysphagia, unspecified (principal); K74.60 Unspecified cirrhosis of liver; E11.9 Type 2 diabetes mellitus without complications; I10 Essential (primary) hypertension; Z86.19 Personal history of other infectious and parasitic diseases; F43.10 Post-traumatic stress disorder, unspecified; G47.33 Obstructive sleep apnea (adult) (pediatric); F41.9 Anxiety disorder, unspecified; J44.9 Chronic obstructive pulmonary disease, unspecified; F32.A Depression, unspecified; Z79.4 Long term (current) use of insulin; Z79.84 Long term (current) use of oral hypoglycemic drugs; Z79.899 Other long term (current) drug therapy
CPT/HCPCS: 82947; J2003; J2704; J7120

== ENCOUNTER 2024-10-07 11:54 | Emergency (ER) | payer MEDICARE ==
[~2024-10-07] VITALS: Ht 170.2 cm; Wt 63.5 kg
[2024-10-07] MEDS ORDERED: HYDROmorphone HCl 2 MG Tab PO ONE (12:10)
[2024-10-07] MEDS ORDERED: HYDROmorphone HCl/Pf 1MG SYR IM ONE (13:40)
[2024-10-07 14:00] VITALS: BP 132/74
[2024-10-07] MEDS ORDERED: HYDMOR4 PO (14:27)
== END 2024-10-07 14:32 | disposition home or self-care (01) ==
LOC: ER 11:54
DX: M75.32 Calcific tendinitis of left shoulder (principal); M75.31 Calcific tendinitis of right shoulder; G47.30 Sleep apnea, unspecified; I11.0 Hypertensive heart disease with heart failure; I50.9 Heart failure, unspecified; E11.9 Type 2 diabetes mellitus without complications; I48.91 Unspecified atrial fibrillation; C22.7 Other specified carcinomas of liver; J45.909 Unspecified asthma, uncomplicated; Z87.891 Personal history of nicotine dependence; Z88.8 Allergy status to other drugs, medicaments and biological substances; Z79.84 Long term (current) use of oral hypoglycemic drugs; Z79.01 Long term (current) use of anticoagulants; Z79.899 Other long term (current) drug therapy
CPT/HCPCS: 96372; 99283-25; A9270; J1171

== ENCOUNTER 2024-11-26 09:37 | Emergency (ER) | payer MEDICARE ==
[~2024-11-26] VITALS: Ht 172.7 cm; Wt 63.5 kg
[~2024-11-26 09:37] MED LIST changes: +HYDMOR4 PO
[2024-11-26] MEDS ORDERED: Avastin25 MG/ML IV (10:56)
[2024-11-26] MEDS ORDERED: ATEZOLIZUMAB IV (10:57)
[2024-11-26] MEDS ORDERED: SERT100 PO (10:58)
[2024-11-26 11:05] LABS: BASOPHILS ABSOLUTE AUTO 0.02 K/mm3 (0.00-0.23); BASOPHILS PERCENT AUTO 0 % (0-2); EOSINOPHILS PERCENT AUTO 30 % (0-6); Hematocrit 43.9 % (37.0-53.0); Hemoglobin 14.3 g/dL (13.5-17.5); IMMATURE GRAN ABSOLUTE AUTO 0.08 K/mm3 (0.00-0.10); IMMATURE GRAN PERCENT AUTO 1 % (0-1); LYMPHOCYTES PERCENT AUTO 19 % (21-46); MONOCYTES ABSOLUTE AUTO 0.45 K/mm3 (0.16-1.47); MONOCYTES PERCENT AUTO 6 % (4-13); Mean Corpuscular HGB 28.7 pg (26.0-34.0); Mean Corpuscular HGB Conc 32.6 g/dL (31.5-36.5); Mean Corpuscular Volume 88 fL (80-100); Mean Platelet Volume 9.4 fL (9.1-12.4); NEUTROPHILS ABSOLUTE AUTO 3.07 K/mm3 (1.96-9.15); NEUTROPHILS PERCENT AUTO 44 % (41-73); Platelet Count 219 K/mm3 (150-400); RDW Coefficient Variation 13.4 % (11.7-14.2); RDW Standard Deviation 43.2 fL (35.1-46.3); Red Blood Cell Count 4.99 M/mm3 (4.30-5.90); White Blood Cell Count 7.02 K/mm3 (4.00-11.30)
[2024-11-26] MEDS ORDERED: JARDIANCE10 MG PO (11:10)
[2024-11-26] MEDS ORDERED: ALFU10 PO (11:10)
[2024-11-26] MEDS ORDERED: Morphine Sulfate 4 MG/1 ML Injection IV ONE (11:25)
[2024-11-26] MEDS ORDERED: Ondansetron HCl 2 MG / ML 2ML Vial IV ONE (11:25)
[2024-11-26 11:26] LABS: Source, Urine Voided
[2024-11-26 11:37] LABS: Bilirubin, Urine Neg (Neg); Blood, Urine Neg (Neg); Glucose Qualitative, Urine Neg (Neg); Ketones, Urine Neg (Neg); Leukocyte Esterase, Urine Neg (Neg); Nitrite, Urine Neg (Neg); Protein, Urine 1+ (Neg); Specific Gravity, Urine 1.015 (1.003-1.022); Urobilinogen, Urine NORM (Normal)
[2024-11-26 11:38] LABS: Appearance, Urine Clear (Clear); Color, Urine Yellow (P-Yellow)
[2024-11-26 11:44] LABS: Albumin, Blood 3.6 g/dL (3.4-5.0); Albumin/Globulin Ratio 0.7 (0.8-1.8); Bilirubin, Total 0.4 mg/dL (0.1-1.0); Bun/Creatinine Ratio 22.2 (12.0-20.0); Calcium, Blood 9.5 mg/dL (8.5-10.1); Creatinine, Blood 0.94 mg/dL (0.60-1.20); Globulin, Blood 4.9 g/dL (2.2-4.0); Potassium, Blood 4.5 mmol/L (3.5-5.5); Total Protein, Blood 8.5 g/dL (6.4-8.2)
[2024-11-26] MEDS ORDERED: HYDROCODONE-AC1 EA10 PO (14:03)
[2024-11-26] MEDS ORDERED: LOPE2C PO (14:03)
[2024-11-26 14:10] VITALS: BP 138/86
[2024-11-26 15:57] LABS: Adenovirus F 40/41 Not Detected (NOT DETECT); Astrovirus Not Detected (NOT DETECT); Campylobacter Sp Not Detected (NOT DETECT); Cryptosporidium Not Detected (NOT DETECT); Cyclospora Cayetanensis Not Detected (NOT DETECT); E. Coli O157 Not Detected (NOT DETECT); Entamoeba Histolytica Not Detected (NOT DETECT); Enteroaggregative E. coli-EAEC Not Detected (NOT DETECT); Enteropathogenic E. coli-EPEC Not Detected (NOT DETECT); Enterotoxigenic E. coli-ETEC Not Detected (NOT DETECT); Giardia Lamblia Not Detected (NOT DETECT); Norovirus GI/GII Not Detected (NOT DETECT); Plesiomonas Shigelloides Not Detected (NOT DETECT); Rotavirus A Not Detected (NOT DETECT); Salmonella Sp Not Detected (NOT DETECT); Sapovirus Not Detected (NOT DETECT); Shiga Toxin-prod E. coli-STEC Not Detected (NOT DETECT); Shigella/Enteroin E. coli-EIEC Not Detected (NOT DETECT); Vibrio Cholerae Not Detected (NOT DETECT); Vibrio Sp Not Detected (NOT DETECT); Yersinia Enterocolitica Not Detected (NOT DETECT)
== END 2024-11-26 14:23 | disposition home or self-care (01) ==
LOC: ER 09:37
PROVIDERS: Emergency Medicine
DX: R19.7 Diarrhea, unspecified (principal); S46.002A Unspecified injury of muscle(s) and tendon(s) of the rotator cuff of left shoulder, initial encounter; X58.XXXA Exposure to other specified factors, initial encounter; C22.0 Liver cell carcinoma; I11.0 Hypertensive heart disease with heart failure; I50.30 Unspecified diastolic (congestive) heart failure; I48.91 Unspecified atrial fibrillation; E11.9 Type 2 diabetes mellitus without complications; J45.909 Unspecified asthma, uncomplicated; Z87.891 Personal history of nicotine dependence; Z88.8 Allergy status to other drugs, medicaments and biological substances; Z79.84 Long term (current) use of oral hypoglycemic drugs; Z79.01 Long term (current) use of anticoagulants; Z79.899 Other long term (current) drug therapy
CPT/HCPCS: 73030; 74177; 80053; 83690; 85025; 87507; 93005; 93010; 96374-59; 96375; 99284-25; J2270; J2405; Q9967

== ENCOUNTER 2024-12-22 09:58 | Emergency (ER) | payer MEDICARE ==
[~2024-12-22] VITALS: Ht 170.2 cm; Wt 63.5 kg
[~2024-12-22 09:58] MED LIST changes: +ALFU10 PO; +ATEZOLIZUMAB IV; +Avastin25 MG/ML IV; +HYDROCODONE-AC1 EA10 PO; +JARDIANCE10 MG PO; +SERT100 PO
[2024-12-22 10:33] VITALS: BP 133/74
[2024-12-22 11:12] LABS: BASOPHILS ABSOLUTE AUTO 0.04 K/mm3 (0.00-0.23); BASOPHILS PERCENT AUTO 1 % (0-2); EOSINOPHILS ABSOLUTE AUTO 2.75 K/mm3 (0.00-0.68); EOSINOPHILS PERCENT AUTO 38 % (0-6); Hematocrit 45.3 % (37.0-53.0); Hemoglobin 14.5 g/dL (13.5-17.5); IMMATURE GRAN ABSOLUTE AUTO 0.03 K/mm3 (0.00-0.10); IMMATURE GRAN PERCENT AUTO 0 % (0-1); LYMPHOCYTES ABSOLUTE AUTO 1.14 K/mm3 (0.84-5.20); LYMPHOCYTES PERCENT AUTO 16 % (21-46); MONOCYTES ABSOLUTE AUTO 0.53 K/mm3 (0.16-1.47); MONOCYTES PERCENT AUTO 7 % (4-13); Mean Corpuscular HGB 28.3 pg (26.0-34.0); Mean Corpuscular Volume 88 fL (80-100); Mean Platelet Volume 9.3 fL (9.1-12.4); NEUTROPHILS ABSOLUTE AUTO 2.81 K/mm3 (1.96-9.15); NEUTROPHILS PERCENT AUTO 39 % (41-73); Platelet Count 222 K/mm3 (150-400); RDW Coefficient Variation 13.4 % (11.7-14.2); RDW Standard Deviation 43.3 fL (35.1-46.3); Red Blood Cell Count 5.13 M/mm3 (4.30-5.90)
[2024-12-22 11:35] LABS: Albumin, Blood 3.6 g/dL (3.4-5.0); Albumin/Globulin Ratio 0.8 (0.8-1.8); Bilirubin, Total 0.5 mg/dL (0.1-1.0); Bun/Creatinine Ratio 17.6 (12.0-20.0); Calcium, Blood 9.5 mg/dL (8.5-10.1); Creatinine, Blood 0.96 mg/dL (0.60-1.20); Globulin, Blood 4.6 g/dL (2.2-4.0); Total Protein, Blood 8.2 g/dL (6.4-8.2)
[2024-12-22] MEDS ORDERED: OXYC10TA19 PO (14:33)
[2024-12-22] MEDS ORDERED: DIPATR PO (14:33)
== END 2024-12-22 14:42 | disposition home or self-care (01) ==
LOC: ER 09:58
PROVIDERS: Physician Assistant
DX: R19.7 Diarrhea, unspecified (principal); I48.91 Unspecified atrial fibrillation; E11.9 Type 2 diabetes mellitus without complications; Z87.891 Personal history of nicotine dependence; Z88.8 Allergy status to other drugs, medicaments and biological substances; Z79.899 Other long term (current) drug therapy; Z79.84 Long term (current) use of oral hypoglycemic drugs; Z79.01 Long term (current) use of anticoagulants; Z79.2 Long term (current) use of antibiotics
CPT/HCPCS: 80053; 85025; 93005; 93010; 99284-25

== ENCOUNTER 2025-01-18 09:57 | Emergency (ER) | payer MEDICARE ==
[~2025-01-18] VITALS: Ht 172.7 cm; Wt 63.5 kg
[~2025-01-18 09:57] MED LIST changes: +DIPATR PO; +OXYC10TA19 PO
[2025-01-18 10:15] VITALS: BP 145/105
[2025-01-18] MEDS ORDERED: Percocet 5-3251 EACH PO (11:40)
[2025-01-18] MEDS ORDERED: Ketorolac Tromethamine 30mg Vial IM ONE (11:45)
[2025-01-18] MEDS ORDERED: OXYC10TA19 PO (12:22)
== END 2025-01-18 12:20 | disposition home or self-care (01) ==
LOC: ER 09:57
DX: M25.512 Pain in left shoulder (principal); I11.0 Hypertensive heart disease with heart failure; I48.91 Unspecified atrial fibrillation; J45.909 Unspecified asthma, uncomplicated; Z88.8 Allergy status to other drugs, medicaments and biological substances; Z79.01 Long term (current) use of anticoagulants; Z79.899 Other long term (current) drug therapy; Z87.891 Personal history of nicotine dependence; Z59.89 Other problems related to housing and economic circumstances
CPT/HCPCS: 73030; 96372; 99283-25; J1885

== ENCOUNTER 2025-03-19 03:22 | Emergency (ER) | payer MEDICARE ==
[~2025-03-19] VITALS: Ht 170.2 cm; Wt 70.3 kg
[~2025-03-19 03:22] MED LIST changes: +Percocet 5-3251 EACH PO
[2025-03-19 03:42] VITALS: BP 138/85
[2025-03-19] MEDS ORDERED: RX Prepack 6 Tabs Oxycodone 5mg UD ONE (05:05)
[2025-03-19] MEDS ORDERED: PERCOCET 10-321 EA10 PO (05:12)
== END 2025-03-19 05:14 | disposition home or self-care (01) ==
LOC: ER 03:22
DX: M25.512 Pain in left shoulder (principal); I11.0 Hypertensive heart disease with heart failure; I50.30 Unspecified diastolic (congestive) heart failure; I48.91 Unspecified atrial fibrillation; E11.9 Type 2 diabetes mellitus without complications; Z76.0 Encounter for issue of repeat prescription; Z88.8 Allergy status to other drugs, medicaments and biological substances; Z87.891 Personal history of nicotine dependence; Z79.84 Long term (current) use of oral hypoglycemic drugs; Z79.899 Other long term (current) drug therapy
CPT/HCPCS: 99283; A9270

== ENCOUNTER 2025-04-11 11:46 | Emergency (ER) | payer MEDICARE ==
[~2025-04-11] VITALS: Ht 172.7 cm; Wt 63.5 kg
[~2025-04-11 11:46] MED LIST changes: +PERCOCET 10-321 EA10 PO
[2025-04-11 11:51] VITALS: BP 152/102
[2025-04-11] MEDS ORDERED: OXAYDO5 M1 PO (14:53)
[2025-04-11] MEDS ORDERED: GABA300 PO ×2 (14:53→14:58)
== END 2025-04-11 15:04 | disposition home or self-care (01) ==
LOC: ER 11:46
DX: M25.512 Pain in left shoulder (principal); C22.0 Liver cell carcinoma; G89.3 Neoplasm related pain (acute) (chronic); I11.0 Hypertensive heart disease with heart failure; E11.9 Type 2 diabetes mellitus without complications; J45.909 Unspecified asthma, uncomplicated; I50.32 Chronic diastolic (congestive) heart failure; I48.91 Unspecified atrial fibrillation; Z79.899 Other long term (current) drug therapy; Z88.8 Allergy status to other drugs, medicaments and biological substances; Z79.84 Long term (current) use of oral hypoglycemic drugs; Z79.01 Long term (current) use of anticoagulants
CPT/HCPCS: 36415; 73030; 74183; 80053; 82105; 85027; 85610; 99283-25; A9581

== ENCOUNTER 2025-05-04 06:24 | Emergency (ER) | payer MEDICARE ==
[~2025-05-04] VITALS: Ht 172.7 cm; Wt 64.4 kg
[~2025-05-04 06:24] MED LIST changes: +GABA300 PO; +OXAYDO5 M1 PO
[2025-05-04] MEDS ORDERED: OXYC10ER PO (07:41)
[2025-05-04 07:46] VITALS: BP 147/85
[2025-05-04] MEDS ORDERED: OXYC10TA19 PO (09:59)
== END 2025-05-04 08:09 | disposition home or self-care (01) ==
LOC: ER 06:24
DX: R52 Pain, unspecified (principal); Z76.0 Encounter for issue of repeat prescription; I11.0 Hypertensive heart disease with heart failure; I50.30 Unspecified diastolic (congestive) heart failure; E11.9 Type 2 diabetes mellitus without complications; J45.909 Unspecified asthma, uncomplicated; Z87.891 Personal history of nicotine dependence; Z79.899 Other long term (current) drug therapy; Z79.84 Long term (current) use of oral hypoglycemic drugs; Z88.8 Allergy status to other drugs, medicaments and biological substances
CPT/HCPCS: 99281; A9270

== ENCOUNTER 2025-05-30 07:25 | Day surgery (SDC) | payer MEDICARE | END 2025-05-30 09:34 | disposition home or self-care (01) | LOC: ORSCSDS 07:25 | PROC: 0D758ZZ Dilation of Esophagus, Via Natural or Artificial Opening Endoscopic (ICD-10-PCS; principal; 2025-05-30) | DX: R13.10 Dysphagia, unspecified (principal); I10 Essential (primary) hypertension; E11.9 Type 2 diabetes mellitus without complications; F32.A Depression, unspecified; Z86.19 Personal history of other infectious and parasitic diseases; K74.69 Other cirrhosis of liver; K21.9 Gastro-esophageal reflux disease without esophagitis; E78.5 Hyperlipidemia, unspecified; Z85.05 Personal history of malignant neoplasm of liver; Z79.01 Long term (current) use of anticoagulants; Z79.84 Long term (current) use of oral hypoglycemic drugs; Z79.899 Other long term (current) drug therapy; Z87.891 Personal history of nicotine dependence ==

== ENCOUNTER → 2025-06-03 | Outpatient (CLI) | payer MEDICARE ==
[~2025-06-03] MED LIST changes: +OXYC10ER PO
== END ==
LOC: LAB 17:00 → LAB SHORT 17:00
DX: J02.9 Acute pharyngitis, unspecified (principal)
CPT/HCPCS: 87070; 87205

== ENCOUNTER 2025-06-10 15:38 | Emergency (ER) | payer MEDICARE ==
[~2025-06-10] VITALS: Ht 172.7 cm; Wt 63.5 kg
[2025-06-10 16:13] VITALS: BP 130/94
[2025-06-10] MEDS ORDERED: OXYC10TA19 PO (16:23)
== END 2025-06-10 16:32 | disposition home or self-care (01) ==
LOC: ER 15:38
DX: G89.3 Neoplasm related pain (acute) (chronic) (principal); C22.0 Liver cell carcinoma; I11.0 Hypertensive heart disease with heart failure; I50.30 Unspecified diastolic (congestive) heart failure; I48.91 Unspecified atrial fibrillation; E11.9 Type 2 diabetes mellitus without complications; Z87.891 Personal history of nicotine dependence; Z88.8 Allergy status to other drugs, medicaments and biological substances; Z79.84 Long term (current) use of oral hypoglycemic drugs; Z79.01 Long term (current) use of anticoagulants; Z79.899 Other long term (current) drug therapy
CPT/HCPCS: 99281; A9270

== ENCOUNTER → 2025-06-24 | Outpatient (CLI) | payer MEDICARE ==
[2025-06-24 17:10] LABS: Alanine Aminotransfer (ALT/SGP 29.0 U/L (12-78); Albumin, Blood 4.2 g/dL (3.4-5.0); Albumin/Globulin Ratio 0.9 (0.8-1.8); Anion Gap 10.0 mmol/L (3-11); Aspartate Aminotrans (AST/SGOT 21.0 U/L (12-37); Bilirubin, Total 0.6 mg/dL (0.1-1.0); Blood Urea Nitrogen 30.0 mg/dL (8-24); CO2, Blood 27.0 mmol/L (21-32); Calcium, Blood 9.4 mg/dL (8.5-10.1); Chloride, Blood 101.0 mmol/L (98-108); Creatinine, Blood 1.23 mg/dL (0.60-1.20); Globulin, Blood 4.6 g/dL (2.2-4.0); Glucose, Blood 136.0 mg/dL (70-99); Potassium, Blood 4.9 mmol/L (3.5-5.5); Sodium, Blood 133.0 mmol/L (136-145); Total Protein, Blood 8.8 g/dL (6.4-8.2)
== END ==
LOC: LAB 14:55 → LAB SHORT 14:55
DX: I50.30 Unspecified diastolic (congestive) heart failure (principal); E11.9 Type 2 diabetes mellitus without complications
CPT/HCPCS: 80053; 82043; 82570

== ENCOUNTER → 2025-06-24 | Outpatient (CLI) | payer MEDICARE ==
[2025-06-24 18:25] LABS: Creatinine, Urine Random 124.0 mg/dL (27.00-270.00); Microalbumin, Random Urine 223.0 mg/L (0.000-20.000)
== END ==
LOC: LAB SHORT 16:22 → LAB 16:22
DX: E11.9 Type 2 diabetes mellitus without complications (principal)
CPT/HCPCS: 82043; 82570